=== PATIENT | female | born 1960 | race Caucasian/White ===

== ENCOUNTER 2017-06-07 13:57 | Emergency (ER) | payer MEDICARE, MEDICAID ==
[2017-06-07] MEDS ORDERED: NALBUPHINE HCL 20 MG/ML AMPUL IM ONE (14:58)
[2017-06-07] MEDS ORDERED: PROMETHAZINE HCL 25 MG/ML AMPUL IM ONE (14:59)
[2017-06-07] MEDS ORDERED: PROMETHAZINE HCL 25 MG/ML AMPUL ONE (15:06)
[2017-06-07] MEDS ORDERED: NALBUPHINE HCL 20 MG/ML AMPUL ONE (15:06)
[2017-06-07 15:13] VITALS: BP 118/70
--- NOTE | 2017-06-07 15:50 | ERNOTE ---
Lower Extremity HPI - Narrative Date of Service: 06/07/17 - General Lower Extremities Pain: leg: left Time Seen by Provider: 06/07/17 14:10 Source: patient Exam Limitations: no limitations - Immun/Allergies/Home Medications Immunizations: IMMUNIZATION HX Immunizations Up to Date No History of Influenza Vaccine No Hx Pneumococcal Vaccination No Allergies/Adverse Reactions: Allergies Allergy/AdvReac Type Severity Reaction Status Date / Time hydroxyzine HCl [From Atarax] Allergy Intermediate Swelling Verified 06/07/17 14 :06 of Throat sumatriptan [From Imitrex] Allergy Unknown Verified 06/07/17 14:06 sumatriptan succinate Allergy Unknown Verified 06/07/17 14:06 [From Imitrex] morphine AdvReac Intermediate violent Verified 06/07/17 14:06 Home Medications: HOME MEDICATIONS Bupropion HCl [Wellbutrin] 75 mg PO TID 07/28/13 [Last Taken Unknown] Cholecalciferol (Vitamin D3) [Vitamin D3] 1,000 unit PO DAILY 07/28/13 [Last Taken Unknown] Doxazosin Mesylate 1 mg PO DAILY 07/28/13 [Last Taken Unknown] ALPRAZolam [Xanax] 2 mg PO QID 07/29/13 [Last Taken Unknown] Metoprolol Tartrate [Lopressor] 50 mg PO BID 07/29/13 [Last Taken 05/03/16 06:45 ] Oxycodone HCl/Acetaminophen [Percocet 10-325 mg Tablet] 1 each PO Q6H PRN [Last Taken Unknown] Insulin Glargine,Hum.rec.anlog [Lantus] 30 units SC HS #1 vial 08/02/13 [Last Taken Unknown] Amantadine HCl [Amantadine] 100 mg PO BID 04/29/16 [Last Taken Unknown] Aspirin [Aspirin Enteric Coated] 325 mg PO DAILY 04/29/16 [Last Taken Unknown] Carbidopa/Levodopa 25/100 [Sinemet 25/100] 1 tab PO QID 04/29/16 [Last Taken Unknown] Cyanocobalamin [Vitamin B-12] 1,000 mcg PO DAILY 04/29/16 [Last Taken Unknown] Furosemide [Lasix] 20 mg PO DAILY 04/29/16 [Last Taken Unknown] Insulin Regular, Human [Humulin R] 0 units IJ PRN PRN 04/29/16 [Last Taken Unknown] Lurasidone HCl [Latuda] 120 mg PO DAILY 04/29/16 [Last Taken Unknown] Oxybutynin Chloride [Ditropan Xl] 15 mg PO DAILY 04/29/16 [Last Taken Unknown] Polyethylene Glycol 3350 [Miralax] 17 gm PO DAILY 04/29/16 [Last Taken Unknown] Topiramate [Topamax] 50 mg PO DAILY 04/29/16 [Last Taken Unknown] lamoTRIgine [Lamictal] 150 mg PO DAILY 04/29/16 [Last Taken Unknown] - History of Present Illness Narrative: Patient presents to the ED for "migraine" and leg pain. She relates a typical migraine WOOD that she tells me is no different from her usual. No N/T/W acutely , no trauma. She states she normally get Nubain and Phenergan. Also she has been having 1 week of left lateral knee/upper leg pain. She relates that she had been pulling weeds and twisted her left knee one week ago. She has been having pain around the head of her left fibula since then. No acute N/T/W. no joint redness, swelling or warmth. No other acute orthopedic pains with this. Moderate. Worse with palpation. has not seen anyon else for this. She seems more concerned about getting medication s for her migraine headache than anything at this point. Occurred: last week Location of Incident: work Method of Injury: Reports: twisted Loss of Consciousness: Reports: no loss of consciousness Modifying Factors - (Improves): Reports: rest Modifying Factors - (Worsens): Reports: movement Associated Symptoms: Reports: headache. Denies: unable to bear weight, popping sensation, weakness, sensory loss, vomiting/diarrhea Other Injuries: Denies: head Subsequent Symptoms: Denies: sensory loss, numbness Prior Treament: Denies: recently seen Review of Systems - Review of Systems Constitutional: Absent: fever ENT: Absent: sore throat Respiratory: Absent: shortness of breath Cardiology: Absent: chest pain Gastrointestinal/Abdominal: Absent: abdominal pain Neurological: Absent: weakness - Patient's Past Medical History Patient History - Medical: ADHD Patient History - Cardiac/Respiratory: No pertinent hx Patient History - Cancer: No Hx of Cancer Patient History - Surgical Procedures: Appendectomy, Cholecystectomy, Hysterectomy Patient History - Other: None LMP (females 10-50): hysterectomy - Social History Living Situations: home Abuse History: No History of abuse Psych History: Hx of Anxiety, Hx of Depression, Current tx/ever been on anti- depressants or anti-anxiety meds Smoking Status: Former smoker Alcohol Use: none Drug Use: none - Immunizations Immunizations Up to Date: No Hx Pneumococcal Vaccination: No History of Influenza Vaccine: No Physical Exam - Physical Exam General Appearance: Present: alert, no apparent distress Head Exam: Present: normal inspection, no evidence of injury Eye Exam: Normal inspection: bilateral, PERRL: bilateral Ears, Nose, Throat: Present: normal ENT inspection Neck: Present: normal inspection Respiratory: Present: no respiratory distress, normal breath sounds, lungs clear Cardiovascular/Chest: Present: regular rate, rhythm, normal peripheral pulses Peripheral Pulses: N=norm/S=strong/W=weak/B=bound/A=absent: Dorsalis-pedis (L): Normal Gastrointestinal/Abdominal: Present: normal bowel sounds, nontender, soft Back Exam: Absent: CVA tenderness (R), CVA tenderness (L) Extremity Exam: Present: other - No hip or ankle tenderness. Mild tenderness lateral left proximal fibular head. Full ROm knee. No redness or warmth. No specific knee tendenress. Nothing to suggest DVT, septic arthritis or other acute life or limb threat. Neurological Exam: Present: alert, normal mood/affect, no motor/sensory deficits Skin Exam: Present: normal color, warm/dry ED Progress - Vital Signs Patient's Vital Signs:: I have reviewed the patient's vital signs. Vital Signs: Vital Signs 06/07/17 06/07/17 14:02 15:10 Temperature 36.4 C L 36.6 C Pulse Rate 75 68 Respiratory 18 15 Rate Blood Pressure 122/67 118/70 O2 Sat by Pulse 95 Oximetry - X-Ray X-Ray #1 X-Ray: knee X-ray Comments: I reviewed official radiogy report - Progress/Reassessment Chief Complaint: Lower Extremity Pain/ Injury Progress Note-Subjective: 06/07/17 15:49 Typical migraine for her, she requests treament. No Fx. no suggestion of infectious process or fracture. no clear life or limb threat identified. She is requesting to go home. i disucssed warning signs and reasons to return as well as the need for close f/u. Departure Clinical Impression: Migraine, Musculoskeletal pain - Departure Disposition: Home self-care Condition: Stable Instructions: Musculoskeletal Pain Additional Instructions: Rest. Ice. elevation. Knee immobilizer. Follow-up 3 days with your doctor, call for an appointment. Return for fever, weakness, rash, redness or swelling of the knee or if your condition worsens or changes in any way. Referrals: Geraldo Pastrana MD [Primary Care Provider] -
== END 2017-06-07 15:43 | disposition home or self-care (01) ==
LOC: ER 13:57
PROC: 2W3MX1Z Immobilization of Left Lower Extremity using Splint (ICD-10-PCS; principal; 2017-06-07)
DX: G43.909 Migraine, unspecified, not intractable, without status migrainosus (principal); M79.1 Myalgia

== ENCOUNTER 2017-09-29 12:30 | Emergency (ER) | payer MEDICARE, MEDICAID ==
[2017-09-29] MEDS ORDERED: NORMAL SALINE 1,000 ML IV ONE (13:10)
[2017-09-29 13:33] LABS: Hematocrit 38.4 % (37.0-47.0); Hemoglobin 12.6 gm/dL (12.5-16.0); Mean Cell Volume 87.5 fl (78-100); Mean Corpuscular Hemoglobin 28.7 pg (27-31); Mean Corpuscular Hgb Conc 32.8 g/dl (32-36); Mean Platelet Volume 8.6 fl (6.0-9.5); Neutrophil # 8.9 K/mm3 (1.3-6.0); Neutrophil % 67.8 % (42-75.0); Platelet Count 370 K/mm3 (150-450); Red Blood Count 4.39 M/mm3 (4.2-5.4); Red Cell Distribution Width 14.5 % (11.5-14.0); White Blood Count 13.1 K/mm3 (4.0-10.5)
[2017-09-29 13:35] LABS: Urine Bilirubin 1 mg/dl (NEGATIVE); Urine Blood Negative /ul (NEGATIVE); Urine Ketone 5 mg/dL (NEGATIVE); Urine Nitrite Negative (NEGATIVE); Urine Protein 30 mg/dL (NEGATIVE); Urine Specific Gravity 1.025 SP.GR. (1.005-1.010); Urine Urobilinogen Normal (NORMAL)
[2017-09-29 13:47] LABS: Cocaine Ur Negative (NEGATIVE); Urine Appearance Cloudy; Urine Barbiturate Negative (NEGATIVE); Urine Benzodiazepines Positive (NEGATIVE); Urine Color Yellow; Urine Opiates Negative (NEGATIVE); Urine PCP Negative (NEGATIVE); Urine RBC None Seen /hpf (0-5); Urine THC Negative (NEGATIVE); Urine WBC None Seen /hpf (0-5)
[2017-09-29 13:48] LABS: Urine Bacteria 2+; Urine Hyaline Cast 0-5 /LPF; Urine Yeast Few - 1+
[2017-09-29 13:53] LABS: ALT 8 U/L (19-67); AST 20 U/L (0-48); Albumin * 3.2 gm/dl (3.4-5.0); Alkaline Phosphatase * 120 U/L (50-170); Anion Gap 14.6 mmol/L (6.8-13.8); Bilirubin, Total 0.5 mg/dL (0.0-1.1); Blood Urea Nitrogen 12 mg/dL (3-23); Ca. Corrected For Albumin 8.8 mg/dL (8.4-10.2); Calcium * 8.5 mg/dL (7.9-10.9); Carbon Dioxide 25.3 mmol/L (24-32.6); Chloride 101 mmol/L (97-106); Glucose * 134 mg/dL (70-110); Magnesium 1.5 mg/dL (1.2-2.8); Potassium 2.9 mmol/L (3.4-4.6); Sodium 138 mmol/L (132-142); Total Protein 7.2 gm/dL (6.2-8.2); Troponin I Less than 0.017 ng/ml (0.00-0.10)
--- NOTE | 2017-09-29 13:57 | ERNOTE ---
Neuro HPI ER Record Presenting Symptoms: confusion - patient apparently has been having episodic falling with a period of confusion after the fall Time Seen by Provider: 09/29/17 12:37 Source: patient Exam Limitations: no limitations - other than the confusion following the events Immunizations: IMMUNIZATION HX Immunizations Up to Date Yes History of Influenza Vaccine No Hx Pneumococcal Vaccination No Allergies/Adverse Reactions: Allergies Allergy/AdvReac Type Severity Reaction Status Date / Time hydroxyzine HCl [From Atarax] Allergy Intermediate Swelling Verified 09/29/17 12 :41 of Throat sumatriptan [From Imitrex] Allergy Unknown Verified 09/29/17 12:41 sumatriptan succinate Allergy Unknown Verified 09/29/17 12:41 [From Imitrex] morphine AdvReac Intermediate violent Verified 09/29/17 12:41 Home Medications: HOME MEDICATIONS Bupropion HCl [Wellbutrin] 75 mg PO TID 07/28/13 [Last Taken Unknown] Cholecalciferol (Vitamin D3) [Vitamin D3] 1,000 unit PO DAILY 07/28/13 [Last Taken Unknown] Doxazosin Mesylate 1 mg PO DAILY 07/28/13 [Last Taken Unknown] ALPRAZolam [Xanax] 2 mg PO QID 07/29/13 [Last Taken Unknown] Metoprolol Tartrate [Lopressor] 50 mg PO BID 07/29/13 [Last Taken 05/03/16 06:45 ] Oxycodone HCl/Acetaminophen [Percocet 10-325 mg Tablet] 1 each PO Q6H PRN [Last Taken Unknown] Insulin Glargine,Hum.rec.anlog [Lantus] 30 units SC HS #1 vial 08/02/13 [Last Taken Unknown] Aspirin [Aspirin Enteric Coated] 325 mg PO DAILY 04/29/16 [Last Taken Unknown] Carbidopa/Levodopa 25/100 [Sinemet 25/100] 1 tab PO QID 04/29/16 [Last Taken Unknown] Cyanocobalamin [Vitamin B-12] 1,000 mcg PO DAILY 04/29/16 [Last Taken Unknown] Insulin Regular, Human [Humulin R] 0 units IJ PRN PRN 04/29/16 [Last Taken Unknown] Lurasidone HCl [Latuda] 120 mg PO DAILY 04/29/16 [Last Taken Unknown] Oxybutynin Chloride [Ditropan Xl] 15 mg PO DAILY 04/29/16 [Last Taken Unknown] lamoTRIgine [Lamictal] 150 mg PO DAILY 04/29/16 [Last Taken Unknown] Atorvastatin Calcium 07/10/17 [Last Taken Unknown] Cyclobenzaprine HCl 07/10/17 [Last Taken Unknown] Lamotrigine 07/10/17 [Last Taken Unknown] Levothyroxine Sodium 07/10/17 [Last Taken Unknown] Myrbetriq 07/10/17 [Last Taken Unknown] - History of Present Illness Narrative: Patient has a history of seizures and Parkinson's disease and has been having episodes of falling and confusion according to the patient of uncertain etiology. Patient has no complaint at this point, although she does admit to having healing abrasions to the right knee and the posterior left calf, as well as a bruise on her left lower abdomen. She states she has been having blood sugars in the 20s at home as well. Onset: sudden onset Severity: mild Context: fall - Character of Deficits Baseline Cognition: Present: alert, oriented x 4 Baseline Gait: Present: walks w/o assistance Associated Symptoms: Reports: none Review of Systems - Review of Systems Constitutional: Present: See HPI EYE: Present: no symptoms reported ENT: Present: no symptoms reported Respiratory: Present: no symptoms reported Cardiology: Present: no symptoms reported Gastrointestinal/Abdominal: Present: no symptoms reported Genitourinary: Present: no symptoms reported Musculoskeletal: Present: no symptoms reported Skin: Present: other - abrasions to the right knee posterior left calf as well as ecchymosis to the left lower abdomen Neurological: Present: seizure - likely Endocrine: Present: no symptoms reported Hematologic/Lymphatic: Present: no symptoms reported Psych: Present: no symptoms reported - Patient's Past Medical History Patient History - Medical: ADHD, Diabetes Type 2 Insulin Dependent, Obesity, Seizures, Other - Parkinson's disease, schizophrenia Patient History - Cardiac/Respiratory: No pertinent hx Patient History - Cancer: No Hx of Cancer Patient History - Surgical Procedures: Appendectomy, Cholecystectomy, Hysterectomy Patient History - Other: None LMP (females 10-50): other - Social History Living Situations: other Abuse History: No History of abuse Psych History: Hx of Anxiety, Hx of Depression, Current tx/ever been on anti- depressants or anti-anxiety meds Smoking Status: Current every day smoker Have you smoked in the past 12 months: Yes Do you dip or chew tobacco: No Patient requests Smoking Cessation Consult: No Initiate information on Smoking Cessation: No Alcohol Use: none Drug Use: none - Immunizations Immunizations Up to Date: Yes Hx Pneumococcal Vaccination: No History of Influenza Vaccine: No Physical Exam - Physical Exam General Appearance: Present: wd/wn, alert, no apparent distress Head Exam: Present: normal inspection, no evidence of injury Eye Exam: Normal inspection: bilateral, PERRL: bilateral Ears, Nose, Throat: Present: normal ENT inspection, H, normal pharynx Neck: Present: normal inspection, nontender Respiratory: Present: no respiratory distress, normal breath sounds, no accessory muscle use, chest nontender, lungs clear Cardiovascular/Chest: Present: regular rate, rhythm, no murmur, normal peripheral pulses Gastrointestinal/Abdominal: Present: normal bowel sounds, nontender, nondistended, soft, no organomegaly Rectal Exam: Present: deferred Back Exam: Present: normal inspection, normal range of motion Extremity Exam: Present: non-tender, normal range of motion, no edema, other - healing abrasions to the right knee around the patella area and the left calf Neurological Exam: Present: alert, oriented, normal mood/affect Skin Exam: Present: warm/dry, other - ecchymosis to the left lower abdomen Lymphatic Exam: Present: no adenopathy Deborah Coma Scale - Assess Eye Opening: Spontaneous Motor: Obeys Commands Verbal: Oriented - Total Coma Scale Total: 15 ED Progress - Results and Orders Patient's Lab Results:: I have reviewed the patient's lab results. - Vital Signs Patient's Vital Signs:: I have reviewed the patient's vital signs. Vital Signs: Vital Signs 09/29/17 09/29/17 09/29/17 12:32 12:48 12:49 Temperature 36.1 C L 36.0 C L Pulse Rate 84 80 80 Respiratory 15 18 Rate Blood Pressure 113/67 124/64 O2 Sat by Pulse 95 96 Oximetry 09/29/17 13:30 Temperature Pulse Rate 81 Respiratory Rate Blood Pressure O2 Sat by Pulse Oximetry - EKG EKG: NSR - X-Ray X-Ray #1 X-Ray: chest Interpretation: Reviewed by me - CT/Ultrasound CT/Ultrasound Narrative: CT the head reviewed by me - Progress/Reassessment Chief Complaint: Altered Mental Status Progress:: Improved Plan - Plan Plan: I suspect that the patient is having several possible breakthroughs in her medical care. I am suspecting that she is having hypoglycemic episodes and she would benefit from eating at least 6 small meals a day and she is possibly having breakthrough seizures which could be compounding the process as well. Patient will be sent home with the above caveat that she is to call her family physician to discuss any further treatment options that are possible. Patient also appears to have an underlying diagnosis of migraines as well. Departure Clinical Impression: Hypoglycemia - Departure Disposition: Home self-care Condition: Good Instructions: Hypoglycemia, [id number] Additional Instructions: Make sure you eat at least 6 small meals a day. Call your family physician to discuss any further testing that might be applicable. Referrals: Geraldo Pastrana MD [Primary Care Provider] -
[2017-09-29] MEDS ORDERED: POTASSIUM CHLORIDE 20 MEQ TABLET.SA PO ONE (14:06)
[2017-09-29 14:21] VITALS: BP 113/60
[2017-09-29] MEDS ORDERED: POTASSIUM CHLORIDE 20 MEQ TABLET.SA ONE (14:24)
== END 2017-09-29 14:55 | disposition home or self-care (01) ==
LOC: ER 12:30
DX: R40.2410 Glasgow coma scale score 13-15, unspecified time; E16.2 Hypoglycemia, unspecified
CPT/HCPCS: 36415; 70450; 71046; 80053; 80307; 81001; 82140; 83735; 84484; 85025; 93005; 99285; G0481

== ENCOUNTER 2017-11-10 10:37 | Inpatient (IN) | payer MEDICARE, MEDICAID ==
[2017-11-10] MEDS ORDERED: LORazepam 2 MG/ML DISP.SYRIN ONE ×2 (10:45→11:04)
[2017-11-10] MEDS ORDERED: LORazepam 2 MG/ML DISP.SYRIN IV ONE ×3 (10:45→11:03)
[2017-11-10] MEDS ORDERED: PHENYTOIN SODIUM 1,000 MG in NORMAL SALINE 50 ML IV ONE (11:03)
[2017-11-10 11:14] LABS: Hematocrit 39.6 % (37.0-47.0); Hemoglobin 13.3 gm/dL (12.5-16.0); Mean Cell Volume 85.7 fl (78-100); Mean Corpuscular Hemoglobin 28.8 pg (27-31); Mean Corpuscular Hgb Conc 33.6 g/dl (32-36); Neutrophil # 12.5 K/mm3 (1.3-6.0); Neutrophil % 91.2 % (42-75.0); Platelet Count 307 K/mm3 (150-450); Red Blood Count 4.62 M/mm3 (4.2-5.4); Red Cell Distribution Width 14.6 % (11.5-14.0); White Blood Count 13.7 K/mm3 (4.0-10.5)
[2017-11-10] MEDS ORDERED: NORMAL SALINE IV ONE (11:30)
[2017-11-10] MEDS ORDERED: FOSPHENYTOIN SODIUM IV ONE (11:30)
[2017-11-10 11:31] LABS: Albumin * 3.3 gm/dl (3.4-5.0); Bilirubin, Total 0.3 mg/dL (0.0-1.1); Calcium * 8.8 mg/dL (7.9-10.9); Carbon Dioxide 21.6 mmol/L (24-32.6); Magnesium 1.6 mg/dL (1.2-2.8); Potassium 4.6 mmol/L (3.4-4.6); Total Protein 7.4 gm/dL (6.2-8.2)
--- NOTE | 2017-11-10 11:57 | ERNOTE ---
Neuro HPI ER Record Presenting Symptoms: other - seizing Time Seen by Provider: 11/10/17 11:04 Source: EMS Exam Limitations: clinical condition Immunizations: IMMUNIZATION HX Immunizations Up to Date Yes History of Influenza Vaccine No Hx Pneumococcal Vaccination No Allergies/Adverse Reactions: Allergies Allergy/AdvReac Type Severity Reaction Status Date / Time hydroxyzine HCl [From Atarax] Allergy Intermediate Swelling Verified 09/29/17 12 :41 of Throat sumatriptan [From Imitrex] Allergy Unknown Verified 09/29/17 12:41 sumatriptan succinate Allergy Unknown Verified 09/29/17 12:41 [From Imitrex] morphine AdvReac Intermediate violent Verified 09/29/17 12:41 Home Medications: HOME MEDICATIONS Bupropion HCl [Wellbutrin] 75 mg PO TID 07/28/13 [Last Taken Unknown] Cholecalciferol (Vitamin D3) [Vitamin D3] 1,000 unit PO DAILY 07/28/13 [Last Taken Unknown] Doxazosin Mesylate 1 mg PO DAILY 07/28/13 [Last Taken Unknown] ALPRAZolam [Xanax] 2 mg PO QID 07/29/13 [Last Taken Unknown] Metoprolol Tartrate [Lopressor] 50 mg PO BID 07/29/13 [Last Taken 05/03/16 06:45 ] Oxycodone HCl/Acetaminophen [Percocet 10-325 mg Tablet] 1 each PO Q6H PRN [Last Taken Unknown] Insulin Glargine,Hum.rec.anlog [Lantus] 30 units SC HS #1 vial 08/02/13 [Last Taken Unknown] Aspirin [Aspirin Enteric Coated] 325 mg PO DAILY 04/29/16 [Last Taken Unknown] Carbidopa/Levodopa 25/100 [Sinemet 25/100] 1 tab PO QID 04/29/16 [Last Taken Unknown] Cyanocobalamin [Vitamin B-12] 1,000 mcg PO DAILY 04/29/16 [Last Taken Unknown] Insulin Regular, Human [Humulin R] 0 units IJ PRN PRN 04/29/16 [Last Taken Unknown] Lurasidone HCl [Latuda] 120 mg PO DAILY 04/29/16 [Last Taken Unknown] Oxybutynin Chloride [Ditropan Xl] 15 mg PO DAILY 04/29/16 [Last Taken Unknown] lamoTRIgine [Lamictal] 150 mg PO DAILY 04/29/16 [Last Taken Unknown] Atorvastatin Calcium 07/10/17 [Last Taken Unknown] Cyclobenzaprine HCl 07/10/17 [Last Taken Unknown] Lamotrigine 07/10/17 [Last Taken Unknown] Levothyroxine Sodium 07/10/17 [Last Taken Unknown] Myrbetriq 07/10/17 [Last Taken Unknown] - History of Present Illness Narrative: Patient arrives what appears to be status epilepticus. Patient normally takes Lamictal and it is reasonably good job controlling the seizures however this morning she came through and has been incontinent as well. Onset: cannot confirm onset - unknown - Character of Deficits Baseline Cognition: Present: alert, oriented x 4 Baseline Gait: Present: walks w/o assistance Associated Symptoms: Reports: seizure Review of Systems - Review of Systems Constitutional: Present: See HPI EYE: Present: no symptoms reported ENT: Present: no symptoms reported Respiratory: Present: no symptoms reported Cardiology: Present: no symptoms reported Gastrointestinal/Abdominal: Present: no symptoms reported Genitourinary: Present: no symptoms reported Musculoskeletal: Present: no symptoms reported Skin: Present: no symptoms reported Neurological: Present: See HPI Endocrine: Present: no symptoms reported Hematologic/Lymphatic: Present: no symptoms reported Psych: Present: no symptoms reported - Patient's Past Medical History Patient History - Medical: ADHD, Diabetes Type 2 Insulin Dependent, Obesity, Seizures, Other Patient History - Cardiac/Respiratory: No pertinent hx Patient History - Cancer: No Hx of Cancer Patient History - Surgical Procedures: Appendectomy, Cholecystectomy, Hysterectomy Patient History - Other: None - Social History Abuse History: No History of abuse Psych History: Hx of Anxiety, Hx of Depression, Current tx/ever been on anti- depressants or anti-anxiety meds - Immunizations Immunizations Up to Date: Yes Hx Pneumococcal Vaccination: No History of Influenza Vaccine: No Physical Exam - Physical Exam General Appearance: Present: severe distress Head Exam: Present: normal inspection, no evidence of injury Eye Exam: Normal inspection: bilateral, PERRL: bilateral Ears, Nose, Throat: Present: normal ENT inspection, H, normal pharynx Neck: Present: normal inspection, nontender Respiratory: Present: no respiratory distress, normal breath sounds, no accessory muscle use, chest nontender, lungs clear Cardiovascular/Chest: Present: regular rate, rhythm, no murmur, normal peripheral pulses Gastrointestinal/Abdominal: Present: normal bowel sounds, nontender, nondistended, soft, no organomegaly Rectal Exam: Present: deferred Back Exam: Present: normal inspection, normal range of motion Extremity Exam: Present: normal inspection, non-tender, no edema, normal range of motion Neurological Exam: Present: other - patient is in status epilepticus Skin Exam: Present: normal color, warm/dry Lymphatic Exam: Present: no adenopathy ED Progress - Results and Orders Patient's Lab Results:: I have reviewed the patient's lab results. - Vital Signs Patient's Vital Signs:: I have reviewed the patient's vital signs. Vital Signs: Vital Signs 11/10/17 10:49 Temperature 36.8 C Pulse Rate 92 Respiratory 25 H Rate Blood Pressure 149/79 O2 Sat by Pulse 95 Oximetry - X-Ray X-Ray #1 X-Ray: chest Interpretation: Reviewed by me - CT/Ultrasound CT/Ultrasound Narrative: CT the head reviewed by me - Progress/Reassessment Chief Complaint: Seizure Activity Plan - Plan Plan: As the patient appeared to be in status epilepticus and required some fairly emergent intervention with multiple doses of Ativan and 1 g of Cerebyx to control the seizures the patient will be admitted to a telemetry bed overnight for adjusting her medication and monitoring Departure Clinical Impression: Status epilepticus - Departure Disposition: Still a patient Condition: Fair Critical Care Note - Critical Care Note Total Time (mins): 40 Comments: History of cord multiple interventions to break the seizure activity including Ativan and Cerebyx. Patient will be admitted to a monitored bed for further treatment and evaluation.
[2017-11-10] MEDS ORDERED: NORMAL SALINE 1,000 ML IV ONE (12:25)
[2017-11-10] MEDS ORDERED: FLU VACC QS2017-18(6MOS UP)/PF 60 MCG/0.5 ML SYRINGE IM ONE (14:57)
[2017-11-10] MEDS ORDERED: DEXTROSE 5%-0.5 NORMAL SALINE 1,000 ML IV PRN (15:27)
[2017-11-10] MEDS ORDERED: LEVOFLOXACIN IN DEXTROSE 5 % 750 MG/150 ML BAG IV ONE (15:27)
--- NOTE | 2017-11-10 15:38 | HP ---
Chief Complaint - Chief Complaint Date of Service: 11/10/17 Time of Service: 15:33 Chief Complaint: Possible seizure? History of Present Illness: History per ERP, records and her children as pt. is obtunded and not responsive. 57yo WF with PMH significant for insulin dependent DM2, parkinson, urinary incontinence, migraines, brain tumor, polypharmacy, was in her usual state of health earlier this week, seen by me in clinic with complaint of Migraine WOOD at that time. She was given her usual injection, which relieved her WOOD, but also had some medications changed due to feeling like her WOOD were not well controlled (increased topamax to 100mg po bid) and increased her oxybutinin to 10mg daily due to worsening urinary incontinence. Her daughter and son said she was acting fine the night before admission, but in the am was very obtunded , moaning but not responsive. Because she had had issues with hypoglycemia and hyperglycemia causing this type of spell in the past they checked her sugar and found her to be around 278 so gave her 10 units of insulin. Rechecking her 20min later she was in the 70's, then 50's, then 20's, then came back up into the 200's again. She still was not arousable so EMS was called. Her children were concerned that maybe she had taken her medications at the wrong time and doubled them up. In the ER she was noted to be having generalized shaking and urinary incontinence so was treated as having a seizure, given IV ativan and phenytoin and then put on venti mask at 12L o2 to keep sats in the 90's, transferred to the floor. Her WBC was elevated to 13.9 with a left shift and CXR showed possible developing infiltrate, but most of this was attributed to her seizure by the ERP. When I saw her she continued to be obtunded, moaning with sternal rub, but no other response. - Patient's Past Medical History Patient History - Medical: ADHD, Diabetes Type 2 Insulin Dependent, Obesity, Seizures, Other Patient History - Cardiac/Respiratory: No pertinent hx Patient History - Cancer: No Hx of Cancer Patient History - Surgical Procedures: Appendectomy, Cholecystectomy, Hysterectomy Patient History - Other: None - Family History Mother Family History - Medical: Family History - Cardiac/Respiratory: CVA/Stroke Family History - Cancer: Testicular Father Family History - Medical: History Unknown Family History - Cardiac/Respiratory: History Unknown Family History - Cancer: History Unknown Brother Family History - Medical: No pertinent hx Family History - Cardiac/Respiratory: No pertinent hx Family History - Cancer: No pertinent family hx - Social History Abuse History: No History of abuse Psych History: Hx of Anxiety, Hx of Depression, Current tx/ever been on anti- depressants or anti-anxiety meds Smoking Status: Current every day smoker Have you smoked in the past 12 months: Yes - Immunizations Immunizations Up to Date: Yes Hx Pneumococcal Vaccination: No History of Influenza Vaccine: No Review Of Systems (GEN) - Review of Systems Generalized/Overall Review: Present: Weakness EENTM: Present: No Symptoms Reported Respiratory: Present: No Symptoms Reported Cardiac: Present: No Symptoms Reported Abdominal: Present: No Symptoms Reported Genitourinary: Present: No Symptoms Reported Musculoskeletal: Present: No Symptoms Reported Neurological: Present: Headache, Tremors, Other - decreased LOC Skin: Present: No Symptoms Reported Endocrine: Present: No Symptoms Reported Allergies/Adverse Reactions: Allergies Allergy/AdvReac Type Severity Reaction Status Date / Time hydroxyzine HCl [From Atarax] Allergy Intermediate Swelling Verified 11/10/17 15 :41 of Throat sumatriptan [From Imitrex] Allergy Unknown Verified 11/10/17 15:41 sumatriptan succinate Allergy Unknown Verified 11/10/17 15:41 [From Imitrex] morphine AdvReac Intermediate violent Verified 11/10/17 15:41 Home Medications: HOME MEDICATIONS Cholecalciferol (Vitamin D3) [Vitamin D3] 1,000 unit PO DAILY 07/28/13 [Last Taken Unknown] Doxazosin Mesylate 1 mg PO DAILY 07/28/13 [Last Taken Unknown] ALPRAZolam [Xanax] 2 mg PO QID 07/29/13 [Last Taken Unknown] Metoprolol Tartrate [Lopressor] 50 mg PO BID 07/29/13 [Last Taken 05/03/16 06:45 ] Oxycodone HCl/Acetaminophen [Percocet 10-325 mg Tablet] 1 each PO Q6H PRN [Last Taken Unknown] Carbidopa/Levodopa 25/100 [Sinemet 25/100] 1 tab PO QID 04/29/16 [Last Taken Unknown] Cyanocobalamin [Vitamin B-12] 1,000 mcg PO DAILY 04/29/16 [Last Taken Unknown] lamoTRIgine [Lamictal] 150 mg PO HS 04/29/16 [Last Taken Unknown] Atorvastatin Calcium 20 mg PO DAILY 07/10/17 [Last Taken Unknown] Cyclobenzaprine HCl 10 mg PO BID 07/10/17 [Last Taken Unknown] Levothyroxine Sodium [Synthroid] 25 mcg PO DAILY 07/10/17 [Last Taken Unknown] Mirabegron [Myrbetriq] 25 mg PO DAILY 07/10/17 [Last Taken Unknown] Amitriptyline HCl [Elavil] 10 mg PO HS 11/10/17 [Last Taken Unknown] Aspirin [Aspirin Enteric Coated] 81 mg PO DAILY 11/10/17 [Last Taken Unknown] Insulin Aspart [Novolog Flexpen] See Protocol SQ AC 11/10/17 [Last Taken Unknown ] Insulin Degludec [Tresiba Flextouch U-200] 30 unit SQ QPM 11/10/17 [Last Taken Unknown] Lurasidone HCl [Latuda] 60 mg PO DAILY 11/10/17 [Last Taken Unknown] Oxybutynin Chloride [Ditropan Xl] 10 mg PO DAILY 11/10/17 [Last Taken Unknown] Topiramate [Topamax] 100 mg PO BID 11/10/17 [Last Taken Unknown] buPROPion HCL [Wellbutrin XL] 150 mg PO DAILY 11/10/17 [Last Taken Unknown] Exam - Exam Vital Signs: Vital Signs - Last Taken Temp 36.8 C 11/10/17 14:41 Pulse 97 11/10/17 14:41 Resp 16 11/10/17 14:41 BP 109/75 11/10/17 14:41 Pulse Ox 97 11/10/17 14:41 Constitutional: Present: Moderate distress, Obtunded, Looks Older than stated age Eye Exam: bilateral eye: PERRL Neck: Present: supple Respiratory: Present: accessory muscle use, other - coarse upper airway noise radiating antony lungs. no specific focal abnormalities heard. Cardiovascular/Chest: Present: regular rate, rhythm, no murmur Peripheral Pulses: radial (R): 2+, radial (L): 2+ Abdomen: Present: Normal bowel sounds, soft, nontender, nondistended, no rebound tenderness, no hepatospenomegaly Extremity: Present: no calf tenderness, lower extremity edema - trace Skin Exam: Present: normal color Diagnostic Studies: Laboratory Results WBC 13.7 K/mm3 (4.0-10.5) H 11/10/17 11:05 RBC 4.62 M/mm3 (4.2-5.4) 11/10/17 11:05 Hgb 13.3 gm/dL (12.5-16.0) 11/10/17 11:05 Hct 39.6 % (37.0-47.0) 11/10/17 11:05 MCV 85.7 fl (78-100) 11/10/17 11:05 MCH 28.8 pg (27-31) 11/10/17 11:05 MCHC 33.6 g/dl (32-36) 11/10/17 11:05 RDW 14.6 % (11.5-14.0) H 11/10/17 11:05 Plt Count 307 K/mm3 (150-450) 11/10/17 11:05 MPV 9.0 fl (6.0-9.5) 11/10/17 11:05 Immature Gran % (Auto) 0.80 % (0.001-0.429) H 11/10/17 11:05 Immature Gran # (Auto) 0.11 K/mm3 (0.000-0.0310) H 11/10/17 11:05 Neutrophils % 91.2 % (42-75.0) H 11/10/17 11:05 Lymphocytes % 6.6 % (20-51) L 11/10/17 11:05 Monocytes % 1.1 % (0.0-9) 11/10/17 11:05 Eosinophils % 0.1 % (0.0-3.0) 11/10/17 11:05 Basophils % 0.2 % (0.0-1.0) 11/10/17 11:05 Nucleated RBC % 0.0 k/mm3 (0-1) 11/10/17 11:05 Neutrophils # 12.5 K/mm3 (1.3-6.0) H 11/10/17 11:05 Lymphocytes # 0.9 k/mm3 (1.5-3.5) L 11/10/17 11:05 Monocytes # 0.2 k/mm3 (0.0-1.0) 11/10/17 11:05 Eosinophils # 0.0 k/mm3 (0.0-0.7) 11/10/17 11:05 Absolute Basophils 0.0 k/mm3 (0.0-0.1) 11/10/17 11:05 Sodium 137 mmol/L (132-142) 11/10/17 11:05 Plasma Sodium 139 mmol/L (130-142) 11/10/17 11:05 Potassium 4.6 mmol/L (3.4-4.6) D 11/10/17 11:05 Chloride 101 mmol/L (97-106) 11/10/17 11:05 Carbon Dioxide 21.6 mmol/L (24-32.6) L 11/10/17 11:05 Anion Gap 19.0 mmol/L (6.8-13.8) H 11/10/17 11:05 BUN 18 mg/dL (3-23) 11/10/17 11:05 Creatinine 1.50 mg/dL (0.4-1.4) H 11/10/17 11:05 Est GFR (Non-Af Amer) 38 mL/min (60-130) L 11/10/17 11:05 BUN/Creatinine Ratio 12.0 (9.0-21.6) 11/10/17 11:05 Random Glucose 252 mg/dL (70-110) H 11/10/17 11:05 Calcium 8.8 mg/dL (7.9-10.9) 11/10/17 11:05 Calcium Adj for Albumin 9.0 mg/dL (8.4-10.2) 11/10/17 11:05 Magnesium 1.6 mg/dL (1.2-2.8) 11/10/17 11:05 Total Bilirubin 0.3 mg/dL (0.0-1.1) 11/10/17 11:05 AST 20 U/L (0-48) 11/10/17 11:05 ALT 17 U/L (19-67) L 11/10/17 11:05 Alkaline Phosphatase 121 U/L (50-170) 11/10/17 11:05 Total Protein 7.4 gm/dL (6.2-8.2) 11/10/17 11:05 Albumin 3.3 gm/dl (3.4-5.0) L 11/10/17 11:05 Assessment/Plan - Assessment/Plan (1) DM2 (diabetes mellitus, type 2) Assessment: will start with SSI low dose insulin and accuchecks - q6hrs while NPO, QACHS when taking PO. restart low dose lantus if sugars remain high. She had been on 40units previously which had recently been reduced to 30units due to hypoglycemia, so will take things slow with her. Problem: Chronic Qualifiers: Diabetes mellitus complication status: with unspecified complications Diabetes mellitus marine oil terminal superintendent insulin use: with nursing home use Qualified Code(s) : E11.8 - Type 2 diabetes mellitus with unspecified complications; Z79.4 - residential (current) use of insulin; Z79.4 - laborer marine terminal (current) use of insulin; Z79.4 - laborer marine terminal (current) use of insulin; Z79.4 - laborer marine terminal (current) use of insulin (2) Parkinson disease Assessment: could have accounted for her tremors, but cannot rule out seizure at this time. Problem: Chronic (3) Bipolar 1 disorder Problem: Chronic (4) Incontinence Assessment: her increase of oxybutinin can cause seizures so will hold this med. worsening sx could be related to her tumor or NPH or possibly too many medications. Problem: Chronic Qualifiers: Incontinence type: urinary Urinary Incontinence type: mixed stress and urge incontinence Qualified Code(s): N39.46 - Mixed incontinence (5) Respiratory failure with hypoxia Assessment: continue on venti mask for now to keep sats > 90. get abg, add neb tx. Problem: Acute (6) Obtunded Assessment: due to medication or possible hypoglycemia with cva or possibly post ictal from ? sz or possibly from her tumor or possibly developing sepsis though no source at this time though could be aspiration pneumonia. will get UA. Problem: Acute (7) Aspiration pneumonia Assessment: given hypoxia and coarse BS. Problem: Suspected Qualifiers: Laterality: unspecified laterality Lung location: unspecified part of lung (8) Hypoglycemia Assessment: due to insulin. will hold for now. Problem: Acute (9) Status epilepticus Assessment: treated in the ER. will hold wellbutrin and oxybutinin as these can cause seizures. I'm still not convinced that she had a seizure due to her still being obtunded and the history given by her children where they denied any sz activity at home, just that she was obtunded. Problem: Suspected (10) Discharge planning issues Assessment: anticipate a very protracted stay as we try to sort out what is going on with her. Problem: Acute
[2017-11-10] MEDS: ALBUTEROL SULFATE/IPRATROPIUM 3 ML NEBU IH SCH ×3 (15:50→22:45)
[2017-11-10] MEDS: INSULIN LISPRO 100 UNITS/ML VIAL SC SCH ×3 (18:48→22:59)
[2017-11-10 18:57] LABS: Urine Bilirubin Negative (NEGATIVE); Urine Blood Negative /ul (NEGATIVE); Urine Ketone 5 mg/dL (NEGATIVE); Urine Nitrite Negative (NEGATIVE); Urine Protein Negative (NEGATIVE); Urine Specific Gravity 1.015 SP.GR. (1.005-1.010); Urine Urobilinogen Normal (NORMAL); Urine pH 7.5 pH (5.0-7.0)
[2017-11-10 19:09] LABS: Urine Appearance Clear; Urine Color Yellow; Urine WBC None Seen /hpf (0-5)
[2017-11-10 19:10] LABS: Urine Bacteria TRACE; Urine RBC None Seen /hpf (0-5)
[2017-11-10] MEDS: CARBIDOPA/LEVODOPA 25/100 1 TAB TABLET PO SCH (19:10)
[2017-11-10] MEDS ORDERED: PANTOPRAZOLE SODIUM 40 MG in NORMAL SALINE 100 ML IV SCH (21:00)
[2017-11-10 21:06] LABS: Hematocrit 38.4 % (37.0-47.0); Hemoglobin 12.9 gm/dL (12.5-16.0); Mean Cell Volume 84.4 fl (78-100); Mean Corpuscular Hemoglobin 28.4 pg (27-31); Mean Corpuscular Hgb Conc 33.6 g/dl (32-36); Mean Platelet Volume 8.9 fl (6.0-9.5); Neutrophil # 15.2 K/mm3 (1.3-6.0); Neutrophil % 91.2 % (42-75.0); Platelet Count 250 K/mm3 (150-450); Red Blood Count 4.55 M/mm3 (4.2-5.4); Red Cell Distribution Width 14.5 % (11.5-14.0); White Blood Count 16.6 K/mm3 (4.0-10.5)
[2017-11-10 21:28] LABS: ALT 21 U/L (19-67); AST 16 U/L (0-48); Alkaline Phosphatase * 115 U/L (50-170); Anion Gap 17.6 mmol/L (6.8-13.8); BUN/Creatinine Ratio 13.1 (9.0-21.6); Bilirubin, Total 0.4 mg/dL (0.0-1.1); Blood Urea Nitrogen 16 mg/dL (3-23); Ca. Corrected For Albumin 9.1 mg/dL (8.4-10.2); Calcium * 8.6 mg/dL (7.9-10.9); Carbon Dioxide 20.3 mmol/L (24-32.6); Chloride 99 mmol/L (97-106); Glucose * 362 mg/dL (70-110); Potassium 3.9 mmol/L (3.4-4.6); Sodium 133 mmol/L (132-142); Total Protein 6.9 gm/dL (6.2-8.2); Troponin I Less than 0.017 ng/ml (0.00-0.10)
--- NOTE | 2017-11-10 22:08 | PN ---
Shen Note - Interim Date: 11/10/17 Time: 21:55 Narrative: 11/10/17 21:55 Report from nurse that pt was obtunded , respond only to very painful stimuli. She has been vomiting coffee ground emesis thats very malodorous. concerned for aspirated pneumonia, pt was already started with Levaquin.Oral suction as pt not managing her secretion. During suction no gag reflex noted. plan for NGT insertion as abdomen distended, X-Ray abdomen no obstruction noted.Case discussed with Dr Pastrana, plan for EKG, trop, repeat labs, transfer to unit, gastric occult and X-ray abdomen. Spoke with pt son who stated pt is full code, she had this episode where she was unresponsive for a while then had full recovery and was coherent. he stated pt had elevated BG at home, she was given 10unit of insulin and since then she had remains unresponsive until they brought her to the ER. The night before she was coherent and able to have conversation. While now pt only makes groaning noise. PMH significant for brain tumor, Parkinson, diabetic coma and MS. case suspicious for metabolic encaphalopathy probable due to medication misuse vs parkinson and brain tumor exacerbation.
[2017-11-11] MEDS: lamoTRIgine 100 MG TABLET PO SCH ×2 (00:26→21:55)
[2017-11-11] MEDS: METOPROLOL TARTRATE 50 MG TABLET PO SCH ×3 (00:26→21:55)
[2017-11-11] MEDS: CARBIDOPA/LEVODOPA 25/100 1 TAB TABLET PO SCH ×5 (00:27→21:55)
[2017-11-11] MEDS: SENNOSIDES/DOCUSATE SODIUM 1 TAB TABLET PO SCH ×2 (00:27→21:55)
[2017-11-11] MEDS: TOPIRAMATE 50 MG TABLET PO SCH ×3 (00:27→21:55)
[2017-11-11] MEDS: ALBUTEROL SULFATE/IPRATROPIUM 3 ML NEBU IH SCH ×6 (02:52→22:05)
[2017-11-11] MEDS: ONDANSETRON HCL/PF 2 MG/ML VIAL IV PRN ×3 (03:20→16:10)
[2017-11-11] MEDS ORDERED: 0.5 NORMAL SALINE 1,000 ML IV PRN (05:12)
[2017-11-11] MEDS: LEVOTHYROXINE SODIUM 25 MCG TABLET PO SCH (06:42)
[2017-11-11] MEDS: INSULIN LISPRO 100 UNITS/ML VIAL SC SCH ×4 (06:52→21:58)
[2017-11-11] MEDS ORDERED: NORMAL SALINE 1,000 ML IV PRN (07:47)
[2017-11-11] MEDS: INSULIN GLARGINE,HUM.REC.ANLOG 100 UNITS/ML VIAL SC SCH ×2 (08:02→08:29)
[2017-11-11] MEDS: LURASIDONE HCL 80 MG TABLET PO SCH (08:29)
--- NOTE | 2017-11-11 08:46 | PN ---
Subjective - Date and Time Seen Date: 11/11/17 Time: 08:39 Subjective Narrative: Pt. moved to SCU last night because of coffee ground emesis, with tachycardia and continued decreased LOC. No further sz activity reported. Pt. will moan but not make meaningful conversation. Objective Objective Narrative: cannot obtain full ROS due to pt. LOC - Review of Systems Generalized/Overall Review: Denies: Fever Respiratory: Denies: Cough, Shortness of Breath Cardiac: Reports: Palpitations Abdominal: Reports: Vomiting. Denies: Abdominal Pain Genitourinary Symptoms: Reports: Other - thomas in place with janell urine outpt. Neurological: Reports: Tremors, Other - obtunded. Denies: Seizure Skin: Reports: No Symptoms Reported Endocrine: Reports: No Symptoms Reported - Vitals Vitals: Last Vital Signs Temp 37.2 C 11/11/17 07:09 Pulse 110 H 11/11/17 08:29 Resp 22 H 11/11/17 07:09 BP 157/81 11/11/17 08:29 Pulse Ox 95 11/11/17 07:09 - Abnormal Lab Findings Abnormal Lab Findings: Abnormal Lab Results 11/10/17 11/10/17 11/10/17 Range/Units 15:55 18:30 20:07 WBC (4.0-10.5) K/mm3 RDW (11.5-14.0) % Immature Gran % (Auto) (0.001-0.429) % Immature Gran # (Auto) (0.000-0.0310) K/mm3 Neutrophils % (42-75.0) % Lymphocytes % (20-51) % Neutrophils # (1.3-6.0) K/mm3 Lymphocytes # (1.5-3.5) k/mm3 pCO2 26.9 L (32.0-45.0) mmHg pO2 76.0 L 68.0 L (83.0-108.0) mmHg HCO3 19.2 L 15.4 L (21.0-28.0) mmol/L Total CO2 16.2 L (19.0-24.0) mmol/L Base Excess -4.7 L -8.2 L (-2.0-3.0) mmol/L ABG O2 Sat (Measured) 93.6 L (94.0-98.0) % Carbon Dioxide (24-32.6) mmol/L Anion Gap (6.8-13.8) mmol/L Est GFR (Non-Af Amer) (60-130) mL/min Random Glucose (70-110) mg/dL Lactic Acid, Venous (0.4-1.9) mmol/L Albumin (3.4-5.0) gm/dl Procalcitonin (0.05-0.50) ng/mL Urine Glucose (UA) 250 H (NEGATIVE) mg/dL 11/10/17 11/10/17 11/10/17 Range/Units 20:16 21:00 21:00 WBC 16.6 H D (4.0-10.5) K/mm3 RDW 14.5 H (11.5-14.0) % Immature Gran % (Auto) 0.60 H (0.001-0.429) % Immature Gran # (Auto) 0.10 H (0.000-0.0310) K/mm3 Neutrophils % 91.2 H (42-75.0) % Lymphocytes % 4.7 L (20-51) % Neutrophils # 15.2 H (1.3-6.0) K/mm3 Lymphocytes # 0.8 L (1.5-3.5) k/mm3 pCO2 (32.0-45.0) mmHg pO2 (83.0-108.0) mmHg HCO3 (21.0-28.0) mmol/L Total CO2 (19.0-24.0) mmol/L Base Excess (-2.0-3.0) mmol/L ABG O2 Sat (Measured) (94.0-98.0) % Carbon Dioxide 20.3 L (24-32.6) mmol/L Anion Gap 17.6 H (6.8-13.8) mmol/L Est GFR (Non-Af Amer) 48 L D (60-130) mL/min Random Glucose 362 H D (70-110) mg/dL Lactic Acid, Venous 2.8 H* (0.4-1.9) mmol/L Albumin 3.0 L (3.4-5.0) gm/dl Procalcitonin (0.05-0.50) ng/mL Urine Glucose (UA) (NEGATIVE) mg/dL 11/10/17 11/10/17 Range/Units 21:00 23:55 WBC (4.0-10.5) K/mm3 RDW (11.5-14.0) % Immature Gran % (Auto) (0.001-0.429) % Immature Gran # (Auto) (0.000-0.0310) K/mm3 Neutrophils % (42-75.0) % Lymphocytes % (20-51) % Neutrophils # (1.3-6.0) K/mm3 Lymphocytes # (1.5-3.5) k/mm3 pCO2 (32.0-45.0) mmHg pO2 (83.0-108.0) mmHg HCO3 (21.0-28.0) mmol/L Total CO2 (19.0-24.0) mmol/L Base Excess (-2.0-3.0) mmol/L ABG O2 Sat (Measured) (94.0-98.0) % Carbon Dioxide (24-32.6) mmol/L Anion Gap (6.8-13.8) mmol/L Est GFR (Non-Af Amer) (60-130) mL/min Random Glucose (70-110) mg/dL Lactic Acid, Venous 2.5 H* (0.4-1.9) mmol/L Albumin (3.4-5.0) gm/dl Procalcitonin Less than 0.05 L (0.05-0.50) ng/mL Urine Glucose (UA) (NEGATIVE) mg/dL - EKG/Xray Findings EKG: other - sinus tach - Exam Constitutional: Present: No distress, Obtunded, Looks Older than stated age Neck: Present: supple Respiratory: Present: no respiratory distress, no accessory muscle use, rales - RML Cardiovascular/Chest: Present: no murmur, tachycardia Abdomen: Present: Normal bowel sounds, soft, nontender, no rebound tenderness, no hepatospenomegaly, distended Extremity: Present: no pedal edema, no calf tenderness, other - SCD's antony LE Skin Exam: Present: normal color Cauti Physician Documentation - Urinary Catheter Management Urethral (Thomas) Urethral Indwelling: Yes Reason for Continuing Indwelling Catheter: Prolonged immobilization Date of Insertion: 11/10/17 Time of Insertion: 23:45 Assessment/Plan - Problems/Diagnosis (1) DM2 (diabetes mellitus, type 2) Problem: Chronic Qualifiers: Diabetes mellitus complication status: with unspecified complications Diabetes mellitus intermediate insulin use: with intermediate use Qualified Code(s) : E11.8 - Type 2 diabetes mellitus with unspecified complications; Z79.4 - [facility] (current) use of insulin; Z79.4 - terminologist (current) use of insulin; Z79.4 - terminologist (current) use of insulin; Z79.4 - [facility] (current) use of insulin Narrative: sugars running high. change of IVF. will do lantus, continue low dose SSI for now. if sugars remain > 200 will increase SSI and then lantus in the am. (2) Parkinson disease Problem: Chronic Narrative: could be what was seen her tremors from this and other causes. (3) Bipolar 1 disorder Problem: Chronic (4) Incontinence Problem: Chronic Qualifiers: Incontinence type: urinary Urinary Incontinence type: mixed stress and urge incontinence Qualified Code(s): N39.46 - Mixed incontinence Narrative: thomas currently in place. (5) Respiratory failure with hypoxia Problem: Acute Narrative: appears to be resolved. concern still for aspiration pneumonia. continue levaquin for now. (6) Obtunded Problem: Acute Narrative: believe this to be multi-factorial: meds, dz, possible sepsis. Sz would not explain the prolonged decreased LOC. (7) Aspiration pneumonia Problem: Suspected Qualifiers: Laterality: unspecified laterality Lung location: unspecified part of lung (8) Hypoglycemia Problem: Acute (9) Status epilepticus Problem: Suspected Narrative: still not sure that this is what happened and would not explain her prolonged LOC changes. will continue to treat as sepsis/infection and medication overdose for now. (10) Discharge planning issues Problem: Acute Narrative: anticipate her being her several days. (11) Coffee ground emesis Problem: Acute Narrative: Hb has been ok, but will do IV protonix until awake, then will change to po.
[2017-11-11] MEDS: NORMAL SALINE 1,000 ML IV PRN ×2 (09:55→18:42)
[2017-11-11] MEDS: LEVOFLOXACIN IN DEXTROSE 5 % 750 MG/150 ML BAG IV SCH (13:39)
[2017-11-11] MEDS: PANTOPRAZOLE SODIUM 40 MG in NORMAL SALINE 50 ML IV SCH (21:54)
[2017-11-12] MEDS: ALBUTEROL SULFATE/IPRATROPIUM 3 ML NEBU IH SCH ×6 (02:09→22:03)
[2017-11-12] MEDS: NORMAL SALINE 1,000 ML IV PRN ×3 (02:45→22:36)
[2017-11-12 05:49] LABS: Hematocrit 33.9 % (37.0-47.0); Hemoglobin 11.2 gm/dL (12.5-16.0); Mean Cell Volume 84.8 fl (78-100); Mean Platelet Volume 8.9 fl (6.0-9.5); Neutrophil # 9.9 K/mm3 (1.3-6.0); Neutrophil % 83.9 % (42-75.0); Platelet Count 246 K/mm3 (150-450); Red Cell Distribution Width 14.5 % (11.5-14.0); White Blood Count 11.7 K/mm3 (4.0-10.5)
[2017-11-12 06:09] LABS: Anion Gap 18.7 mmol/L (6.8-13.8); BUN/Creatinine Ratio 11.3 (9.0-21.6); Calcium * 7.9 mg/dL (7.9-10.9); Carbon Dioxide 19.1 mmol/L (24-32.6); Estimated Creat Clear 44.2; Potassium 3.8 mmol/L (3.4-4.6)
[2017-11-12] MEDS: LEVOTHYROXINE SODIUM 25 MCG TABLET PO SCH (07:12)
[2017-11-12] MEDS: INSULIN LISPRO 100 UNITS/ML VIAL SC SCH ×4 (07:12→21:46)
[2017-11-12] MEDS: LURASIDONE HCL 80 MG TABLET PO SCH (08:25)
[2017-11-12] MEDS: METOPROLOL TARTRATE 50 MG TABLET PO SCH ×2 (08:26→21:35)
[2017-11-12] MEDS: CARBIDOPA/LEVODOPA 25/100 1 TAB TABLET PO SCH ×4 (08:26→21:35)
[2017-11-12] MEDS: TOPIRAMATE 50 MG TABLET PO SCH ×2 (08:26→21:35)
[2017-11-12] MEDS: INSULIN GLARGINE,HUM.REC.ANLOG 100 UNITS/ML VIAL SC SCH (08:52)
--- NOTE | 2017-11-12 10:56 | PN ---
Subjective - Date and Time Seen Date: 11/12/17 Time: 10:45 Subjective Narrative: Pt. is now opening eyes, but cannot verbalize or even follow specific commands, though she does move all extremities at times. No fevers, but sugars have been high. Objective - Review of Systems Generalized/Overall Review: Reports: No Symptoms Reported EENTM: Reports: No Symptoms Reported Respiratory: Reports: Wheezing Cardiac: Reports: No Symptoms Reported Abdominal: Reports: No Symptoms Reported Genitourinary Symptoms: Reports: No Symptoms Reported Musculoskeletal Complaints: Reports: No Symptoms Reported Neurological: Reports: Tremors, Other - cannot verbalize or follow commands. Skin: Reports: No Symptoms Reported Endocrine: Reports: No Symptoms Reported - Vitals Vitals: Last Vital Signs Temp 37.2 C 11/12/17 09:16 Pulse 106 H 11/12/17 10:21 Resp 21 H 11/12/17 10:21 BP 145/74 11/12/17 09:16 Pulse Ox 95 11/12/17 10:21 - Abnormal Lab Findings Abnormal Lab Findings: Abnormal Lab Results 11/11/17 11/12/17 11/12/17 Range/Units 13:02 05:40 05:40 WBC 11.7 H D (4.0-10.5) K/mm3 RBC 4.00 L (4.2-5.4) M/mm3 Hgb 11.2 L (12.5-16.0) gm/dL Hct 33.9 L (37.0-47.0) % RDW 14.5 H (11.5-14.0) % Immature Gran % (Auto) 0.60 H (0.001-0.429) % Immature Gran # (Auto) 0.07 H (0.000-0.0310) K/mm3 Neutrophils % 83.9 H (42-75.0) % Lymphocytes % 9.6 L (20-51) % Neutrophils # 9.9 H (1.3-6.0) K/mm3 Lymphocytes # 1.1 L (1.5-3.5) k/mm3 Carbon Dioxide 19.1 L (24-32.6) mmol/L Anion Gap 18.7 H (6.8-13.8) mmol/L Est GFR (Non-Af Amer) 57 L (60-130) mL/min Random Glucose 407 H (70-110) mg/dL Lactic Acid, Venous 2.5 H* (0.4-1.9) mmol/L - EKG/Xray Findings EKG: other - sinus tach EKG read: Interp. by me - Exam Constitutional: Present: Alert, No distress ENT Exam: Present: hearing grossly normal Neck: Present: supple Respiratory: Present: no respiratory distress, no accessory muscle use, wheezing , expiration (prolonged) Cardiovascular/Chest: Present: regular rate, rhythm Abdomen: Present: Normal bowel sounds, soft, nontender, nondistended, no rebound tenderness, no hepatospenomegaly, no masses Extremity: Present: no pedal edema, no calf tenderness Skin Exam: Present: normal color Neurologic: Present: other - can make movements with eyes and face that look like a "surprised look" but cannot verbalize though she opens her mouth.. Absent: facial droop, motor weakness Cauti Physician Documentation - Urinary Catheter Management Urethral (Ibanez) Urethral Indwelling: Yes Date of Insertion: 11/10/17 Time of Insertion: 23:45 Assessment/Plan - Problems/Diagnosis (1) DM2 (diabetes mellitus, type 2) Problem: Chronic Qualifiers: Diabetes mellitus complication status: with unspecified complications Diabetes mellitus emt intermediate insulin use: with longterm use Qualified Code(s) : E11.8 - Type 2 diabetes mellitus with unspecified complications; Z79.4 - halfway (current) use of insulin; Z79.4 - intermission coordinator (current) use of insulin; Z79.4 - intermission coordinator (current) use of insulin; Z79.4 - intermission coordinator (current) use of insulin Narrative: sugars still high so will increase lantus and SSI. (2) Parkinson disease Problem: Chronic Narrative: stable, off meds for now. restart when taking PO. (3) Bipolar 1 disorder Problem: Chronic (4) Incontinence Problem: Chronic Qualifiers: Incontinence type: urinary Urinary Incontinence type: mixed stress and urge incontinence Qualified Code(s): N39.46 - Mixed incontinence Narrative: no meds for now. (5) Respiratory failure with hypoxia Problem: Resolved Narrative: off O2, maintaining sats. (6) Obtunded Problem: Acute Narrative: now alert, awake, but can't verbalize - concern for CVA vs. tumor growth vs. MS vs. infection vs. doubt diabetic encephalopathy. (7) Aspiration pneumonia Problem: Suspected Qualifiers: Laterality: unspecified laterality Lung location: unspecified part of lung Narrative: continue levaquin as WBC coming down and lactic acid is improved. (8) Hypoglycemia Problem: Acute (9) Status epilepticus Problem: Suspected (10) Coffee ground emesis Problem: Acute Narrative: + occult blood. c/w GI bleed, HH is down, but still is ok. will follow and continue protonix IV until taking PO. (11) GI bleed Problem: Acute Qualifiers: GI bleed type/associated pathology: unspecified gastrointestinal hemorrhage type Qualified Code(s): K92.2 - Gastrointestinal hemorrhage, unspecified Narrative: most likely due to meds she takes, though could be stress reaction. will follow HH and continue protonix. (12) Encephalopathy acute Problem: Acute Narrative: unsure the etiology. could be due to sepsis given the lactic acidosis, leukocytosis and improvement now with resolution of these things, but could be brain tumor or cva so will get MRI of brain. will Order ST, OT, PT eval. (13) Discharge planning issues Problem: Acute Narrative: will discharge when we know more what is going on and what longterm plan may need to occur - placement, rehab.
[2017-11-12] MEDS: LEVOFLOXACIN IN DEXTROSE 5 % 750 MG/150 ML BAG IV SCH (13:56)
[2017-11-12] MEDS: SENNOSIDES/DOCUSATE SODIUM 1 TAB TABLET PO SCH (21:35)
[2017-11-12] MEDS: lamoTRIgine 100 MG TABLET PO SCH (21:35)
[2017-11-12] MEDS: PANTOPRAZOLE SODIUM 40 MG in NORMAL SALINE 50 ML IV SCH (21:38)
[2017-11-13] MEDS: ALBUTEROL SULFATE/IPRATROPIUM 3 ML NEBU IH SCH ×6 (02:14→22:32)
[2017-11-13 05:36] LABS: Hematocrit 34.4 % (37.0-47.0); Hemoglobin 11.7 gm/dL (12.5-16.0); Mean Cell Volume 84.5 fl (78-100); Mean Corpuscular Hemoglobin 28.7 pg (27-31); Mean Platelet Volume 8.7 fl (6.0-9.5); Neutrophil # 8.7 K/mm3 (1.3-6.0); Platelet Count 257 K/mm3 (150-450); Red Blood Count 4.07 M/mm3 (4.2-5.4); Red Cell Distribution Width 14.6 % (11.5-14.0); White Blood Count 11.2 K/mm3 (4.0-10.5)
[2017-11-13] MEDS: INSULIN LISPRO 100 UNITS/ML VIAL SC SCH ×4 (07:05→22:46)
[2017-11-13] MEDS: LEVOTHYROXINE SODIUM 25 MCG TABLET PO SCH (07:05)
[2017-11-13] MEDS: NORMAL SALINE 1,000 ML IV PRN ×2 (07:08→16:43)
--- NOTE | 2017-11-13 07:08 | PN ---
Subjective - Date and Time Seen Date: 11/13/17 Time: 07:03 Subjective Narrative: still non-verbal, moves all her extremities per nursing, but no purposeful movements. Objective - Review of Systems Generalized/Overall Review: Reports: Weakness EENTM: Reports: No Symptoms Reported Respiratory: Reports: No Symptoms Reported Cardiac: Reports: No Symptoms Reported Abdominal: Reports: No Symptoms Reported Genitourinary Symptoms: Reports: No Symptoms Reported Musculoskeletal Complaints: Reports: No Symptoms Reported Neurological: Reports: Tremors, Other - non-verbal. Skin: Reports: No Symptoms Reported Endocrine: Reports: No Symptoms Reported - Vitals Vitals: Last Vital Signs Temp 37.5 C 11/13/17 06:38 Pulse 110 H 11/13/17 06:38 Resp 18 11/13/17 06:38 BP 139/74 11/13/17 06:38 Pulse Ox 92 11/13/17 06:38 - Abnormal Lab Findings Abnormal Lab Findings: Abnormal Lab Results 11/13/17 Range/Units 05:30 WBC 11.2 H (4.0-10.5) K/mm3 RBC 4.07 L (4.2-5.4) M/mm3 Hgb 11.7 L (12.5-16.0) gm/dL Hct 34.4 L (37.0-47.0) % RDW 14.6 H (11.5-14.0) % Immature Gran % (Auto) 0.50 H (0.001-0.429) % Immature Gran # (Auto) 0.06 H (0.000-0.0310) K/mm3 Neutrophils % 78.0 H (42-75.0) % Lymphocytes % 13.7 L (20-51) % Neutrophils # 8.7 H (1.3-6.0) K/mm3 - Exam Constitutional: Present: No distress, Somnolent, Looks Older than stated age Respiratory: Present: no respiratory distress, no accessory muscle use, wheezing , expiration (prolonged) Cardiovascular/Chest: Present: no murmur, tachycardia Abdomen: Present: Normal bowel sounds, soft, nontender, nondistended, no rebound tenderness, no hepatospenomegaly Extremity: Present: no pedal edema, no calf tenderness Skin Exam: Present: normal color Cauti Physician Documentation - Urinary Catheter Management Urethral (Ibanez) Urethral Indwelling: No Date of Insertion: 11/10/17 Time of Insertion: 23:45 Date of Removal: 11/12/17 Time of Removal: 17:30 Assessment/Plan - Problems/Diagnosis (1) DM2 (diabetes mellitus, type 2) Problem: Chronic Qualifiers: Diabetes mellitus complication status: with unspecified complications Diabetes mellitus group home insulin use: with intermodal owner operator truck driver use Qualified Code(s) : E11.8 - Type 2 diabetes mellitus with unspecified complications; Z79.4 - correction (current) use of insulin; Z79.4 - correction (current) use of insulin; Z79.4 - correction (current) use of insulin; Z79.4 - ad terminal makeup operator (current) use of insulin Narrative: sugars better, continue unchanged for now. will reduce if she gets below 100. (2) Parkinson disease Problem: Chronic (3) Bipolar 1 disorder Problem: Chronic (4) Incontinence Problem: Chronic Qualifiers: Incontinence type: urinary Urinary Incontinence type: mixed stress and urge incontinence Qualified Code(s): N39.46 - Mixed incontinence (5) Respiratory failure with hypoxia Problem: Resolved (6) Obtunded Problem: Acute (7) Aspiration pneumonia Problem: Suspected Qualifiers: Laterality: unspecified laterality Lung location: unspecified part of lung Narrative: continue levaquin (8) Hypoglycemia Problem: Acute (9) Status epilepticus Problem: Suspected (10) Coffee ground emesis Problem: Acute Narrative: continue protonix IV. Hb is stable. (11) GI bleed Problem: Acute Qualifiers: GI bleed type/associated pathology: unspecified gastrointestinal hemorrhage type Qualified Code(s): K92.2 - Gastrointestinal hemorrhage, unspecified Narrative: Hb is stable, continue protonix IV (12) Encephalopathy acute Problem: Acute Narrative: continue her NPO. OT/ST/PT eval today. she was unable to hold still enough for MRI. Still unsure the etiology of it all. (13) Discharge planning issues Problem: Acute
[2017-11-13] MEDS: INSULIN GLARGINE,HUM.REC.ANLOG 100 UNITS/ML VIAL SC SCH (08:52)
[2017-11-13] MEDS: METOPROLOL TARTRATE 50 MG TABLET PO SCH ×2 (08:52→22:21)
[2017-11-13] MEDS: LURASIDONE HCL 80 MG TABLET PO SCH (08:52)
[2017-11-13] MEDS: TOPIRAMATE 50 MG TABLET PO SCH ×2 (08:53→22:27)
[2017-11-13] MEDS: CARBIDOPA/LEVODOPA 25/100 1 TAB TABLET PO SCH ×4 (08:53→22:27)
[2017-11-13] MEDS: LEVOFLOXACIN IN DEXTROSE 5 % 750 MG/150 ML BAG IV SCH (13:12)
[2017-11-13] MEDS: lamoTRIgine 100 MG TABLET PO SCH (22:21)
[2017-11-13] MEDS: SENNOSIDES/DOCUSATE SODIUM 1 TAB TABLET PO SCH (22:27)
[2017-11-13] MEDS: PANTOPRAZOLE SODIUM 40 MG in NORMAL SALINE 50 ML IV SCH (22:36)
[2017-11-14] MEDS: NORMAL SALINE 1,000 ML IV PRN (01:13)
[2017-11-14] MEDS ORDERED: METOPROLOL TARTRATE 1 MG/ML AMPUL IV ONE (01:25)
[2017-11-14] MEDS: ALBUTEROL SULFATE/IPRATROPIUM 3 ML NEBU IH SCH ×7 (02:15→22:04)
[2017-11-14 05:53] LABS: Albumin * 2.5 gm/dl (3.4-5.0); Anion Gap 15.9 mmol/L (6.8-13.8); BUN/Creatinine Ratio 14.5 (9.0-21.6); Bilirubin, Total 0.4 mg/dL (0.0-1.1); Ca. Corrected For Albumin 8.7 mg/dL (8.4-10.2); Calcium * 7.8 mg/dL (7.9-10.9); Carbon Dioxide 21.3 mmol/L (24-32.6); Potassium 3.2 mmol/L (3.4-4.6)
--- NOTE | 2017-11-14 06:41 | PN ---
Subjective - Date and Time Seen Date: 11/14/17 Time: 06:29 Subjective Narrative: Still no purposeful movement, but documented that she still moves her extremities. no other issues noted. still no PO intake. Objective - Review of Systems Generalized/Overall Review: Reports: No Symptoms Reported EENTM: Reports: No Symptoms Reported Respiratory: Reports: No Symptoms Reported Cardiac: Reports: No Symptoms Reported Abdominal: Reports: Other - incontinence Genitourinary Symptoms: Reports: Incontinent Musculoskeletal Complaints: Reports: No Symptoms Reported Neurological: Reports: Tremors, Other - obtundedn Skin: Reports: No Symptoms Reported Endocrine: Reports: No Symptoms Reported - Vitals Vitals: Last Vital Signs Temp 37.6 C H 11/14/17 03:00 Pulse 107 H 11/14/17 05:58 Resp 20 11/14/17 05:58 BP 163/84 11/14/17 03:00 Pulse Ox 97 11/14/17 05:48 - Abnormal Lab Findings Abnormal Lab Findings: Abnormal Lab Results 11/14/17 Range/Units 05:33 Potassium 3.2 L (3.4-4.6) mmol/L Carbon Dioxide 21.3 L (24-32.6) mmol/L Anion Gap 15.9 H (6.8-13.8) mmol/L Random Glucose 193 H D (70-110) mg/dL Calcium 7.8 L (7.9-10.9) mg/dL ALT 16 L (19-67) U/L Total Protein 6.0 L (6.2-8.2) gm/dL Albumin 2.5 L (3.4-5.0) gm/dl - EKG/Xray Findings EKG: NSR - Exam Constitutional: Present: No distress, Obtunded, Other - pt does not responded to sternal rub, no grimace or groan., Looks Older than stated age ENT Exam: Present: other - pupils equal and reactive antony. some nystagmus type movement of eyes when eyelids raised up passively. Respiratory: Present: lungs clear, normal breath sounds Cardiovascular/Chest: Present: tachycardia Abdomen: Present: Normal bowel sounds, soft, nontender, nondistended, no rebound tenderness, no hepatospenomegaly Extremity: Present: no pedal edema, no calf tenderness Skin Exam: Present: normal color Cauti Physician Documentation - Urinary Catheter Management Urethral (Ibanez) Urethral Indwelling: No Date of Insertion: 11/10/17 Time of Insertion: 23:45 Date of Removal: 11/12/17 Time of Removal: 17:30 Assessment/Plan - Problems/Diagnosis (1) DM2 (diabetes mellitus, type 2) Problem: Chronic Qualifiers: Diabetes mellitus complication status: with unspecified complications Diabetes mellitus alf insulin use: with tank terminal gauger use Qualified Code(s) : E11.8 - Type 2 diabetes mellitus with unspecified complications; Z79.4 - truck terminal manager (current) use of insulin; Z79.4 - longterm (current) use of insulin; Z79.4 - truck terminal manager (current) use of insulin; Z79.4 - longterm (current) use of insulin Narrative: stable, but pt. is NPO. will start on D51/2NS. (2) Parkinson disease Problem: Chronic (3) Bipolar 1 disorder Problem: Chronic (4) Incontinence Problem: Chronic Qualifiers: Incontinence type: urinary Urinary Incontinence type: mixed stress and urge incontinence Qualified Code(s): N39.46 - Mixed incontinence Narrative: both bowel and bladder. due to CVA vs. tumor vs. ? unable to obtain MRI due to head mvmt and don't wish to induce anesthesia at this time due to concerns for her being obtunded, with unknown etiology. (5) Respiratory failure with hypoxia Problem: Resolved (6) Obtunded Problem: Acute Narrative: unsure etiology. will get EEG to be sure not status epilepticus with no movement. consider neurology consult, though not sure what might be done. (7) Aspiration pneumonia Problem: Suspected Qualifiers: Laterality: unspecified laterality Lung location: unspecified part of lung Narrative: continue levaquin for now. labs not showing signs of worsening infection. (8) Hypoglycemia Problem: Acute (9) Status epilepticus Problem: Suspected Narrative: check EEG. (10) Coffee ground emesis Problem: Acute Narrative: continue protonix. follow H/H. (11) GI bleed Problem: Acute Qualifiers: GI bleed type/associated pathology: unspecified gastrointestinal hemorrhage type Qualified Code(s): K92.2 - Gastrointestinal hemorrhage, unspecified (12) Encephalopathy acute Problem: Acute Narrative: still unsure what is causing her current state. It could be her brain tumor causing all this. If she does not wake up more in the next couple days will try to get neurology consult and MRI of brain, but get anesthesia involved to see if we can sedate her where she has no movement in order to get an idea of what her brain is doing. Can also talk to radiology about whether a contrast CT would be beneficial instead of MRI. (13) Discharge planning issues Problem: Acute Narrative: unsure what to do at this time. if she continues in this vegetative state, it may be best to place her somewhere, consider hospice and comfort care.
[2017-11-14] MEDS: POTASSIUM CHLORIDE IN WATER 100 ML IV SCH ×4 (06:59→10:30)
[2017-11-14] MEDS: DEXTROSE 5%-0.5 NORMAL SALINE 1,000 ML IV PRN ×2 (06:59→21:53)
[2017-11-14] MEDS: LEVOTHYROXINE SODIUM 25 MCG TABLET PO SCH (07:00)
[2017-11-14] MEDS: INSULIN LISPRO 100 UNITS/ML VIAL SC SCH ×4 (07:25→21:21)
[2017-11-14] MEDS: LURASIDONE HCL 80 MG TABLET PO SCH (08:19)
[2017-11-14] MEDS: CARBIDOPA/LEVODOPA 25/100 1 TAB TABLET PO SCH ×4 (08:19→21:14)
[2017-11-14] MEDS: TOPIRAMATE 50 MG TABLET PO SCH ×2 (08:19→21:14)
[2017-11-14] MEDS: METOPROLOL TARTRATE 50 MG TABLET PO SCH ×2 (08:19→21:14)
[2017-11-14] MEDS: INSULIN GLARGINE,HUM.REC.ANLOG 100 UNITS/ML VIAL SC SCH (08:19)
[2017-11-14] MEDS: metroNIDAZOLE/SODIUM CHLORIDE 500 MG/100 ML BAG IV SCH ×2 (10:42→16:33)
[2017-11-14] MEDS: LEVOFLOXACIN IN DEXTROSE 5 % 750 MG/150 ML BAG IV SCH (13:02)
[2017-11-14] MEDS: lamoTRIgine 100 MG TABLET PO SCH (21:13)
[2017-11-14] MEDS: SENNOSIDES/DOCUSATE SODIUM 1 TAB TABLET PO SCH (21:14)
[2017-11-14] MEDS: PANTOPRAZOLE SODIUM 40 MG in NORMAL SALINE 50 ML IV SCH (21:17)
[2017-11-15] MEDS: metroNIDAZOLE/SODIUM CHLORIDE 500 MG/100 ML BAG IV SCH ×3 (01:33→17:40)
[2017-11-15] MEDS: ALBUTEROL SULFATE/IPRATROPIUM 3 ML NEBU IH SCH ×7 (02:20→22:01)
[2017-11-15] MEDS: LEVOTHYROXINE SODIUM 25 MCG TABLET PO SCH (06:50)
[2017-11-15] MEDS: INSULIN LISPRO 100 UNITS/ML VIAL SC SCH ×4 (07:13→20:33)
[2017-11-15] MEDS: DEXTROSE 5%-0.5 NORMAL SALINE 1,000 ML IV PRN ×2 (07:17→20:17)
[2017-11-15] MEDS: METOPROLOL TARTRATE 50 MG TABLET PO SCH ×2 (09:38→20:18)
[2017-11-15] MEDS: LURASIDONE HCL 80 MG TABLET PO SCH (09:38)
[2017-11-15] MEDS: CARBIDOPA/LEVODOPA 25/100 1 TAB TABLET PO SCH ×4 (09:39→20:18)
[2017-11-15] MEDS: TOPIRAMATE 50 MG TABLET PO SCH ×2 (09:39→20:18)
[2017-11-15] MEDS: INSULIN GLARGINE,HUM.REC.ANLOG 100 UNITS/ML VIAL SC SCH (09:42)
[2017-11-15] MEDS: LEVOFLOXACIN IN DEXTROSE 5 % 750 MG/150 ML BAG IV SCH (15:17)
[2017-11-15] MEDS ORDERED: LORazepam 2 MG/ML DISP.SYRIN IV ONE (16:48)
[2017-11-15] MEDS ORDERED: LORazepam 2 MG/ML DISP.SYRIN IV PRN (16:53)
--- NOTE | 2017-11-15 17:05 | PN ---
Subjective - Date and Time Seen Date: 11/15/17 Time: 16:55 Subjective Narrative: Still no purposeful movement, but documented that she still moves her extremities. no other issues noted. still no PO intake. Pt. is opening her eyes today, but still does not follow commands. Just now she had twitching of her left eyebrow and abdomen, eyes wide open but still no expression or responsiveness. Objective Objective Narrative: cannot obtain full ROS due to pt. LOC - Vitals Vitals: Last Vital Signs Temp 37.0 C 11/15/17 14:15 Pulse 95 11/15/17 15:17 Resp 21 H 11/15/17 15:17 BP 135/79 11/15/17 14:15 Pulse Ox 94 11/15/17 15:07 - Exam Constitutional: Present: Alert, Looks Older than stated age ENT Exam: Present: other - PERRL Respiratory: Present: lungs clear, normal breath sounds, no respiratory distress , no accessory muscle use Cardiovascular/Chest: Present: regular rate, rhythm Abdomen: Present: Normal bowel sounds, soft, nontender, nondistended, obese Extremity: Present: no calf tenderness Cauti Physician Documentation - Urinary Catheter Management Urethral (Ibanez) Urethral Indwelling: No Date of Insertion: 11/10/17 Time of Insertion: 23:45 Date of Removal: 11/12/17 Time of Removal: 17:30 Assessment/Plan - Problems/Diagnosis (1) DM2 (diabetes mellitus, type 2) Problem: Chronic Qualifiers: Diabetes mellitus complication status: with unspecified complications Diabetes mellitus intermodal dispatcher insulin use: with intermodal dispatcher use Qualified Code(s) : E11.8 - Type 2 diabetes mellitus with unspecified complications; Z79.4 - terminal manager (current) use of insulin; Z79.4 - nursing home (current) use of insulin; Z79.4 - terminal manager (current) use of insulin; Z79.4 - terminal manager (current) use of insulin Narrative: sugars varying widely. no changes at this time. (2) Parkinson disease Problem: Chronic (3) Bipolar 1 disorder Problem: Chronic (4) Incontinence Problem: Chronic Qualifiers: Incontinence type: urinary Urinary Incontinence type: mixed stress and urge incontinence Qualified Code(s): N39.46 - Mixed incontinence (5) Respiratory failure with hypoxia Problem: Resolved (6) Obtunded Problem: Acute (7) Aspiration pneumonia Problem: Suspected Qualifiers: Laterality: unspecified laterality Lung location: unspecified part of lung Narrative: continue flagyl and levaquin (8) Hypoglycemia Problem: Acute (9) Status epilepticus Problem: Suspected Narrative: EEG was inconclusive, yet she did seem to be possibly seizing just now. Will do ativan IV now and watch for now. Consider CT of head with contrast tomorrow , possibly an LP. (10) Coffee ground emesis Problem: Acute (11) GI bleed Problem: Acute Qualifiers: GI bleed type/associated pathology: unspecified gastrointestinal hemorrhage type Qualified Code(s): K92.2 - Gastrointestinal hemorrhage, unspecified Narrative: continue IV protonix. will recheck CBC in am. (12) Encephalopathy acute Problem: Acute Narrative: unsure of the etiology. Will see if Neurology can see her tomorrow. (13) Discharge planning issues Problem: Acute Narrative: possibly d/c to NH on Monday if still no improvement and no direction as to what to do next.
[2017-11-15] MEDS: lamoTRIgine 100 MG TABLET PO SCH (20:17)
[2017-11-15] MEDS: SENNOSIDES/DOCUSATE SODIUM 1 TAB TABLET PO SCH (20:18)
[2017-11-15] MEDS: PANTOPRAZOLE SODIUM 40 MG in NORMAL SALINE 50 ML IV SCH (20:23)
[2017-11-16] MEDS: ALBUTEROL SULFATE/IPRATROPIUM 3 ML NEBU IH SCH ×4 (02:06→14:20)
[2017-11-16] MEDS: metroNIDAZOLE/SODIUM CHLORIDE 500 MG/100 ML BAG IV SCH ×2 (02:18→09:08)
[2017-11-16 06:02] LABS: Hemoglobin 12.4 gm/dL (12.5-16.0); Mean Cell Volume 84.7 fl (78-100); Mean Corpuscular Hemoglobin 28.4 pg (27-31); Mean Corpuscular Hgb Conc 33.5 g/dl (32-36); Mean Platelet Volume 8.8 fl (6.0-9.5); Neutrophil # 6.5 K/mm3 (1.3-6.0); Neutrophil % 70.2 % (42-75.0); Platelet Count 289 K/mm3 (150-450); Red Blood Count 4.37 M/mm3 (4.2-5.4); White Blood Count 9.3 K/mm3 (4.0-10.5)
[2017-11-16 06:17] LABS: Albumin * 2.5 gm/dl (3.4-5.0); Anion Gap 12.6 mmol/L (6.8-13.8); BUN/Creatinine Ratio 5.1 (9.0-21.6); Bilirubin, Total 0.4 mg/dL (0.0-1.1); Ca. Corrected For Albumin 8.9 mg/dL (8.4-10.2); Potassium 2.6 mmol/L (3.4-4.6)
[2017-11-16] MEDS: DEXTROSE 5%-0.5 NORMAL SALINE 1,000 ML IV PRN (06:26)
[2017-11-16] MEDS: LEVOTHYROXINE SODIUM 25 MCG TABLET PO SCH (06:33)
[2017-11-16] MEDS ORDERED: DEXTROSE 5% IV SCH (07:00)
[2017-11-16] MEDS ORDERED: [UNRECOGNIZED DRUG - OTHER] IV SCH (07:00)
[2017-11-16] MEDS ORDERED: POTASSIUM CHLORIDE IV SCH (07:00)
--- NOTE | 2017-11-16 07:08 | PN ---
Subjective - Date and Time Seen Date: 11/16/17 Time: 07:00 Subjective Narrative: Pt. still unable to have purposeful movement or responses. Does open eyes and stairs. contiinues to have twitching of eyelids and stomach, but nothing else. Ativan does appear to calm these. Objective Objective Narrative: cannot obtain full ROS due to pt. LOC - Vitals Vitals: Last Vital Signs Temp 36.3 C L 11/16/17 02:37 Pulse 117 H 11/16/17 06:09 Resp 18 11/16/17 06:09 BP 136/73 11/16/17 02:37 Pulse Ox 90 11/16/17 05:59 - Abnormal Lab Findings Abnormal Lab Findings: Abnormal Lab Results 11/16/17 11/16/17 Range/Units 05:58 05:58 Hgb 12.4 L (12.5-16.0) gm/dL RDW 15.0 H (11.5-14.0) % Lymphocytes % 18.3 L (20-51) % Eosinophils % 5.0 H (0.0-3.0) % Neutrophils # 6.5 H (1.3-6.0) K/mm3 Potassium 2.6 L (3.4-4.6) mmol/L BUN/Creatinine Ratio 5.1 L (9.0-21.6) Random Glucose 326 H D (70-110) mg/dL ALT 17 L (19-67) U/L Total Protein 6.0 L (6.2-8.2) gm/dL Albumin 2.5 L (3.4-5.0) gm/dl - Exam Constitutional: Present: No distress, Somnolent, Looks Older than stated age Respiratory: Present: no accessory muscle use, wheezing Cardiovascular/Chest: Present: regular rate, rhythm Abdomen: Present: Normal bowel sounds, soft, nontender, nondistended, no rebound tenderness Skin Exam: Present: normal color Cauti Physician Documentation - Urinary Catheter Management Urethral (Thomas) Urethral Indwelling: Yes Reason for Continuing Indwelling Catheter: Prolonged immobilization Date of Insertion: 11/16/17 Time of Insertion: 07:02 Assessment/Plan - Problems/Diagnosis (1) DM2 (diabetes mellitus, type 2) Problem: Chronic Qualifiers: Diabetes mellitus complication status: with unspecified complications Diabetes mellitus terminal gauger insulin use: with terminal gauger use Qualified Code(s) : E11.8 - Type 2 diabetes mellitus with unspecified complications; Z79.4 - [facility] (current) use of insulin; Z79.4 - terminal gauger (current) use of insulin; Z79.4 - terminal gauger (current) use of insulin; Z79.4 - [facility]PC (current) use of insulin Narrative: sugars running high, will increase SSI (2) Parkinson disease Problem: Chronic (3) Bipolar 1 disorder Problem: Chronic (4) Incontinence Problem: Chronic Qualifiers: Incontinence type: urinary Urinary Incontinence type: mixed stress and urge incontinence Qualified Code(s): N39.46 - Mixed incontinence (5) Respiratory failure with hypoxia Problem: Resolved (6) Obtunded Problem: Acute (7) Aspiration pneumonia Problem: Suspected Qualifiers: Laterality: unspecified laterality Lung location: unspecified part of lung Narrative: continue IV levaquin and flagyl. (8) Hypoglycemia Problem: Acute (9) Status epilepticus Problem: Suspected (10) Coffee ground emesis Problem: Acute (11) GI bleed Problem: Acute Qualifiers: GI bleed type/associated pathology: unspecified gastrointestinal hemorrhage type Qualified Code(s): K92.2 - Gastrointestinal hemorrhage, unspecified Narrative: Hb is stable. continue protonix IV (12) Encephalopathy acute Problem: Acute Narrative: unsure etiology. EEG did not show seizures, but did show diffuse cerebral dysfunction. Will try to get CT of head with contrast today to see if this will give us any clues as to the direction to go with tx. (13) Hypokalemia Problem: Acute Narrative: due to IVF. IV replacement in riders did not correct. will add 20meq KCL/ liter of fluids and recheck levels in the am. (14) Edema Problem: Acute Qualifiers: Edema type: generalized Qualified Code(s): R60.1 - Generalized edema Narrative: most likely due to fluids and some malnutrition at this point. Will d/w family feeding tube placement vs. dobhof. consider lasix IV but would want to place th[facility] duet to immobilization. (15) Discharge planning issues Problem: Acute Narrative: consider NH placement vs. transfer to [facility] as she is not getting better and not sure what to do with her at this point.
[2017-11-16] MEDS: INSULIN LISPRO 100 UNITS/ML VIAL SC SCH ×2 (07:21→12:10)
[2017-11-16] MEDS: CARBIDOPA/LEVODOPA 25/100 1 TAB TABLET PO SCH ×2 (09:07→14:57)
[2017-11-16] MEDS: METOPROLOL TARTRATE 50 MG TABLET PO SCH (09:07)
[2017-11-16] MEDS: LURASIDONE HCL 80 MG TABLET PO SCH (09:07)
[2017-11-16] MEDS: TOPIRAMATE 50 MG TABLET PO SCH (09:07)
[2017-11-16] MEDS: INSULIN GLARGINE,HUM.REC.ANLOG 100 UNITS/ML VIAL SC SCH (09:09)
[2017-11-16] MEDS ORDERED: FUROSEMIDE 10 MG/ML VIAL IV ONE (09:54)
--- NOTE | 2017-11-16 12:01 | DS ---
Transfer Discharge Summary - Diagnosis(s)/Problems (1) DM2 (diabetes mellitus, type 2) Problem: Chronic (2) Parkinson disease Problem: Chronic (3) Bipolar 1 disorder Problem: Chronic (4) Incontinence Problem: Chronic (5) Respiratory failure with hypoxia Problem: Resolved (6) Obtunded Problem: Acute (7) Aspiration pneumonia Problem: Suspected (8) Hypoglycemia Problem: Acute (9) Status epilepticus Problem: Suspected (10) Coffee ground emesis Problem: Acute (11) GI bleed Problem: Acute (12) Encephalopathy acute Problem: Acute (13) Hypokalemia Problem: Acute (14) Edema Problem: Acute (15) Discharge planning issues Problem: Acute - Course Description of Stay: Pt. admitted 11/10 with: Presumed seizure (was obtunded but had generalized shaking and urinary incontinence) was given IV ativan and phosphophenytoin and remainded obtunded until 11/12 where she would open her eyes and stare at me, but could no speak or have purposeful movement of her extremities, though did move all extremities in her sleep. When asked questions on the she would want to speak but could only initiate a "suprised look on her face". Due to this the possibility of CVA was considered and MRI done but non-diagnostic due to patient movement. On 11/15 an EEG was done which showed diffuse cerebral dysfunction, but no seizures. DM2 with hyperglycemia: basil lantus of 20 and high dose SSI done. Sugars still would go up into the 300's at times with just being on D5 1/2NS. Decreased LOC: thought to be infectious, but little improvement on Abx. No menigismus or fevers. MRI of brain attempted, but could not be done due to pt. movement. Leukocytosis with left shift and lactic acid of 2.8 (originally thought to be due to sz by admitting physician): I placed her on levaquin for possible pneumonia due to RLL and RML rales, though CXR was negative. WBC peaked at 16.6 , was 13.3 on admit and was 9.3 today. I did add flagyl 2 days ago due to no improvement over all and some diarrhea with concerns for c. diff (but lab test was negative) Lactic acidosis: resolved During stay: Hypokalemia: on 11/14 was hyokalemic to 3.2, given 40meq kcl IV riders, but was 2.6 this am. added 20meq KCL/liter of fluids running at 125ml/hr. Ibanez placed to monitor fluid status and due to incontinence and prolonged immobility. Had twitching of left eyebrow and abdomen yesterday afternoon so was given IV ativan, which did seem to resolved these movements. NOT DONE DURING STAY: CT of head with contrast - ordered today, but CT is now down indefinitely. initial CT on 11/10 showed no acute processes or bleeds. LP: no fever, meningismus or elevated WBC after a couple days. Neurology consult: neurology unavailable at our hospital except from outside hospital and they aren't available at this time. ID consult: no signs of infections at this time. No local ID. Blood cultures: no high fevers, abx initiated long before cultures were consideration. Has PMH: Migraines Brain tumor Parkinson Bipolar 1 - on anti-elliptics in past for this and migraines, depression predominance Urinary incontinence which had been worsening recently, but UA's showed no infection Witnessed apneic spells at times, but ABG's showed she's compensating so BIPAP considered but not initiated. Appreciate the support and help from [facility]. Procedures Performed: none - Results and Findings Results and Findings: Laboratory Results - last 24 hr 11/16/17 11/16/17 11/16/17 05:58 05:58 07:54 WBC 9.3 RBC 4.37 Hgb 12.4 L Hct 37.0 MCV 84.7 MCH 28.4 MCHC 33.5 RDW 15.0 H Plt Count 289 MPV 8.8 Immature Gran % (Auto) 0.30 Immature Gran # (Auto) 0.03 Neutrophils % 70.2 Lymphocytes % 18.3 L Monocytes % 5.8 Eosinophils % 5.0 H Basophils % 0.4 Nucleated RBC % 0.0 Neutrophils # 6.5 H Lymphocytes # 1.69 Monocytes # 0.5 Eosinophils # 0.5 Absolute Basophils 0.0 pCO2 31.4 L pO2 62.8 L HCO3 22.5 Total CO2 23.5 Base Excess -0.4 ABG pH 7.47 H ABG O2 Sat (Measured) 93.7 L Sodium 137 Plasma Sodium 141 Potassium 2.6 L Chloride 101 Carbon Dioxide 26.0 Anion Gap 12.6 BUN 4 D Creatinine 0.79 Est GFR (Non-Af Amer) 80 BUN/Creatinine Ratio 5.1 L Random Glucose 326 H D Calcium 8.0 Calcium Adj for Albumin 8.9 Total Bilirubin 0.4 AST 19 ALT 17 L Alkaline Phosphatase 91 Total Protein 6.0 L Albumin 2.5 L - Medications Medications: Active Medications Albuterol/Ipratropium (Duoneb 2.5-0.5mg/3ml Soln) 3 ml IH Q4HRT [facility] Stop: 12/10/17 15:31 Last Admin: 11/16/17 05:59 Dose: 3 ml Carbidopa/Levodopa (Sinemet 25/100) 1 tab PO QID [facility] Stop: 12/10/17 17:01 Last Admin: 11/16/17 09:07 Dose: Not Given Pantoprazole Sodium 40 mg/ (Sodium Chloride) 50 mls @ 200 mls/hr IV Q24H [facility] Stop: 12/10/17 21:01 Last Infusion: 11/15/17 21:30 Dose: Infused Levofloxacin/Dextrose (Levaquin) 750 mg in 150 mls @ 100 mls/hr IV Q24H [facility] PRN Reason: Protocol Stop: 12/11/17 14:01 Last Admin: 11/15/17 15:17 Dose: 100 mls/hr Metronidazole (Flagyl) 500 mg in 100 mls @ 100 mls/hr IV Q8H [facility] PRN Reason: Protocol Stop: 12/14/17 09:31 Last Admin: 11/16/17 09:08 Dose: 100 mls/hr Potassium Chloride 20 meq/ (Dextrose/Sodium Chloride) 1,005 mls @ 125 mls/hr IV .Q8H3M [facility] Stop: 11/17/17 07:07 Last Admin: 11/16/17 07:20 Dose: 125 mls/hr Insulin Glargine (Lantus) 20 units SC DAILY [facility] Stop: 12/12/17 09:01 Last Admin: 11/16/17 09:09 Dose: 20 units Insulin Human Lispro (Humalog) 0 units SC ACHSINS [facility] PRN Reason: Protocol Stop: 12/10/17 15:46 Last Admin: 11/16/17 07:21 Dose: 17 units Lamotrigine (Lamictal) 150 mg PO HS [facility] Stop: 12/10/17 21:01 Last Admin: 11/15/17 20:17 Dose: Not Given Levothyroxine Sodium (Synthroid) 25 mcg PO DAILY@0700 [facility] Stop: 12/11/17 07:01 Last Admin: 11/16/17 06:33 Dose: Not Given Lorazepam (Ativan) 1 mg IV Q2H PRN PRN Reason: tremors/seizures, anxiety Stop: 12/15/17 17:01 Last Admin: 11/16/17 02:55 Dose: 1 mg Lurasidone HCl (Latuda) 60 mg PO DAILY [facility] Stop: 12/11/17 09:01 Last Admin: 11/16/17 09:07 Dose: Not Given Metoprolol Tartrate (Lopressor) 50 mg PO BID [facility] Stop: 12/10/17 21:01 Last Admin: 11/16/17 09:07 Dose: Not Given Ondansetron HCl (Zofran) 4 mg IV Q6H PRN PRN Reason: Nausea And Vomiting Stop: 12/10/17 23:55 Last Admin: 11/11/17 16:10 Dose: 4 mg Senna/Docusate Sodium (Senokot-S) 2 tab PO HS [facility] Stop: 12/10/17 21:46 Last Admin: 11/15/17 20:18 Dose: Not Given Topiramate (Topamax) 100 mg PO BID [facility] Stop: 12/10/17 21:01 Last Admin: 11/16/17 09:07 Dose: Not Given Discontinued Medications Furosemide (Lasix) 20 mg IV ONCE ONE Stop: 11/16/17 09:55 Last Admin: 11/16/17 10:19 Dose: 20 mg Fosphenytoin Sodium 1,000 mgpe (/ Sodium Chloride) 120 mls @ 1,028.571 mls/hr IV ONCE ONE Stop: 11/10/17 11:36 Last Infusion: 11/10/17 11:52 Dose: Infused Sodium Chloride (Sodium Chloride 0.9%) 1,000 mls @ 125 mls/hr IV .Q8H ONE Stop: 11/10/17 20:24 Last Infusion: 11/10/17 20:56 Dose: Infused Dextrose/Sodium Chloride (Dextrose 5%-0.45%Ns) 1,000 mls @ 125 mls/hr IV .Q8H PRN PRN Reason: HYDRATION Stop: 12/10/17 15:28 Last Infusion: 11/11/17 05:18 Dose: 0 mls/hr Levofloxacin/Dextrose (Levaquin) 750 mg in 150 mls @ 100 mls/hr IV ONCE ONE PRN Reason: Protocol Stop: 11/10/17 16:56 Last Infusion: 11/10/17 20:34 Dose: Infused Pantoprazole Sodium 40 mg/ (Sodium Chloride) 100 mls @ 400 mls/hr IV Q24H [facility] Stop: 12/10/17 21:01 Last Infusion: 11/10/17 23:02 Dose: Infused Sodium Chloride (Sodium Chloride 0.45%) 1,000 mls @ 125 mls/hr IV .Q8H PRN PRN Reason: HYDRATION Stop: 12/11/17 05:13 Last Infusion: 11/11/17 07:59 Dose: 0 mls/hr Sodium Chloride (Sodium Chloride 0.9%) 1,000 mls @ 999 mls/hr IV .Q1H1M PRN PRN Reason: HYDRATION Last Infusion: 11/11/17 09:00 Dose: Infused Sodium Chloride (Sodium Chloride 0.9%) 1,000 mls @ 126 mls/hr IV .Q7H57M PRN PRN Reason: HYDRATION Stop: 12/11/17 09:18 Last Admin: 11/14/17 01:13 Dose: 126 mls/hr Dextrose/Sodium Chloride (Dextrose 5%-0.45%Ns) 1,000 mls @ 125 mls/hr IV .Q8H PRN PRN Reason: HYDRATION Stop: 12/14/17 06:10 Last Infusion: 11/16/17 07:23 Dose: Infused Potassium Chloride (Kcl 10 Meq/100 Ml Piggyback) 100 mls @ 100 mls/hr IV Q1H [facility] Stop: 11/14/17 10:14 Last Infusion: 11/14/17 16:05 Dose: Infused Influenza Virus Vaccine Quadrival (Flulaval Quad [id number] Syringe) 60 mcg IM .ONCE ONE Stop: 11/10/17 14:58 Last Admin: 11/10/17 19:05 Dose: 60 mcg Insulin Glargine (Lantus) 10 units SC DAILY [facility] Stop: 12/11/17 07:31 Last Admin: 11/11/17 08:29 Dose: Not Given Lorazepam (Ativan) 1 mg IV ONCE ONE Stop: 11/10/17 10:52 Last Admin: 11/10/17 10:56 Dose: 1 mg Lorazepam (Ativan) 1 mg IV ONCE ONE Stop: 11/10/17 10:46 Last Admin: 11/10/17 11:02 Dose: 1 mg Lorazepam (Ativan) 1 mg IV ONCE ONE Stop: 11/10/17 11:04 Last Admin: 11/10/17 11:35 Dose: 1 mg Lorazepam (Ativan) 1 mg IV ONCE ONE Stop: 11/15/17 16:49 Last Admin: 11/15/17 16:52 Dose: 1 mg Metoprolol Tartrate (Lopressor) 5 mg IV ONCE ONE Stop: 11/14/17 01:26 Last Admin: 11/14/17 02:02 Dose: 5 mg - Disposition Disposition: Short Term Hospital Inpatient Condition: Stable Discharge Date: 11/16/17 Discharge Time: 13:28
[2017-11-16 13:43] VITALS: BP 145/80
[2017-11-16] MEDS: LEVOFLOXACIN IN DEXTROSE 5 % 750 MG/150 ML BAG IV SCH (14:57)
== END 2017-11-16 16:40 | disposition short-term general hospital (02) | DRG 70 ==
LOC: ER 10:37 → UNDOADMOB 12:37 → MS 12:37 → OBSVTOIN 15:26 → SCU 22:30 → MS 11-11 14:23
PROVIDERS: ADMIT Family Medicine; ATTEND Family Medicine
PROC: 4A033R1 Measurement of Arterial Saturation, Peripheral, Percutaneous Approach (ICD-10-PCS; principal; 2017-11-10)
DX: Z79.4 Long term (current) use of insulin; F31.9 Bipolar disorder, unspecified; E11.9 Type 2 diabetes mellitus without complications; J96.01 Acute respiratory failure with hypoxia; E87.6 Hypokalemia; N39.46 Mixed incontinence; Z23 Encounter for immunization; G93.40 Encephalopathy, unspecified; D72.829 Elevated white blood cell count, unspecified; J69.0 Pneumonitis due to inhalation of food and vomit; G40.901 Epilepsy, unspecified, not intractable, with status epilepticus; G20 Parkinson's disease; K92.2 Gastrointestinal hemorrhage, unspecified; R40.2422 Glasgow coma scale score 9-12, at arrival to emergency department